=== PATIENT | female | born 1965 | race Caucasian/White ===

== ENCOUNTER 2018-05-07 19:34 | Emergency (ER) | payer OTHER, SELFPAY ==
[2018-05-07 19:34] VITALS: BMI 25.4
[2018-05-07] MEDS ORDERED: Sodium Chloride 0.9% 1,000 ML IV STA ×2 (20:21→22:54)
--- NOTE | 2018-05-07 20:26 | ED PDOC ---
HPI: General Adult Time Seen by Provider: 05/07/18 20:10 Chief Complaint (Nursing): Fever Chief Complaint (Provider): joint pain History Per: Patient History/Exam Limitations: no limitations Onset/Duration Of Symptoms: Days (months), Waxing/Waning Additional Complaint(s): 52 y/o female history of gastritis, rheumatoid arthritis, hyperlipidemia presents for evaluation of joint pain x 3 months with associated fevers. Pain localized to bilateral shoulders, hands, hips, and thighs. Daughter states patient was started on Sulfasalazine for the symptoms 2 weeks ago. Patient was seen by PMD yesterday and received pain injection which helped with the pain but was advised to come to ED for further evaluation. Denies cough, congestion, vomiting, abdominal pain, changes in bowel movements, recent travel, sick contacts. Past Medical History Reviewed: Historical Data, Nursing Documentation, Vital Signs Vital Signs: Last Vital Signs Temp 100.2 F H 05/07/18 19:50 Pulse 86 05/07/18 19:50 Resp 16 05/07/18 19:50 BP 126/60 05/07/18 19:50 Pulse Ox 100 05/07/18 19:50 - Medical History PMH: HTN, Hyperlipidemia, Rheumatoid Arthritis - Surgical History Surgical History: - Family History Family History: States: No Known Family Hx - Living Arrangements Living Arrangements: With Family - Immunization History Hx Tetanus Toxoid Vaccination: No Hx Influenza Vaccination: No Hx Pneumococcal Vaccination: No - Home Medications Home Medications: Ambulatory Orders Medication Instructions Recorded Famotidine [Pepcid] 20 mg PO BID PRN #15 tab 11/27/14 Metformin Hydrochloride [Metformin] 500 mg PO BID 11/27/14 Pantoprazole Sodium [Protonix] 20 mg PO DAILY #30 ect 11/27/14 glyBURIDE [Glyburide] 5 mg PO BID 11/27/14 Naproxen [Naprosyn Tab] 375 mg PO BID PRN #14 tab 05/07/18 Oseltamivir Cap [Tamiflu] 75 mg PO BID #9 cap 05/07/18 - Allergies Allergies/Adverse Reactions: Allergies Allergy/AdvReac Type Severity Reaction Status Date / Time No Known Allergies Allergy Verified 05/07/18 19:49 Review of Systems ROS Statement: Except As Marked, All Systems Reviewed And Found Negative Constitutional: Positive for: Fever Musculoskeletal: Positive for: Shoulder Pain, Hand Pain, Leg Pain Physical Exam - Reviewed Nursing Documentation Reviewed: Yes Vital Signs Reviewed: Yes - Physical Exam Appears: Positive for: Well, Non-toxic, Uncomfortable Head Exam: Positive for: ATRAUMATIC, NORMAL INSPECTION, NORMOCEPHALIC Skin: Positive for: Normal Color Eye Exam: Positive for: Normal appearance ENT: Positive for: Normal ENT Inspection Cardiovascular/Chest: Positive for: Regular Rate, Rhythm Respiratory: Positive for: Normal Breath Sounds Gastrointestinal/Abdominal: Positive for: Normal Exam Back: Positive for: Normal Inspection Extremity: Positive for: Normal ROM, Swelling (2-5 PIPS bilateral hands, L>R ). Negative for: Deformity Neurologic/Psych: Positive for: Alert, Oriented (x3) - Laboratory Results Result Diagrams: 05/07/18 21:30 05/08/18 01:06 - ECG ECG: Positive for: Viewed By Me (reviewed by ED attending) ECG Rhythm: Positive for: Sinus Rhythm O2 Sat by Pulse Oximetry: 100 - Radiology X-Ray: Viewed By Me X-Ray Interpretation: No Acute Disease - Other Rad xray bilateral hands X-Ray: Viewed By Nc X-Ray Interpretation: no acute findings - Progress ED Course And Treament: -cbc -cmp -sed rate -influenza -urinalysis -urine c&s -IV NS bolus -IV toradol -PO tylenol On re-eval, patient awake, smiling; states she is feeling much better Will give second IV NS bolus and repeat sodium Repeat sodium 128 from 126 Patient ambulating about ED without complaints of pain or dizziness Patient/daughter educated on findings, discharged with rx Tamiflu (dose given in ED), Naproxen Advised Tylenol PRN fever Encouraged increase fluid intake Follow up with PMD within 2-3 days Return precautions given Disposition - Clinical Impression Clinical Impression: Influenza B, Anemia, Joint pain - Patient ED Disposition Is Patient to be Admitted: No Counseled Patient/Family Regarding: Studies Performed, Diagnosis, Need For Followup, Rx Given - Disposition Disposition: Routine/Home Disposition Time: 02:04 Condition: IMPROVED Prescriptions: Naproxen [Naprosyn Tab] 375 mg PO BID PRN #14 tab PRN Reason: Pain, Moderate (4-7) Oseltamivir Cap [Tamiflu] 75 mg PO BID #9 cap Instructions: Flu, Joint Pain Forms: [employer] (Maltese)
[2018-05-07 21:33] LABS: BASO % 0.3 % (0.0-2.0); EOS # 0.2 K/uL (0.0-0.7); EOS % 3.4 % (0.0-4.0); HEMOGLOBIN 9.5 g/dL (12.0-16.0); LYMPH # 0.7 K/uL (1.0-4.3); LYMPH % 11.1 % (20.0-40.0); MEAN CELL VOLUME 80.5 fl (81.0-99.0); MEAN CORPUSCULAR HEMOGLOBIN 26.4 pg (27.0-31.0); MEAN CORPUSCULAR HGB CONC 32.8 g/dL (33.0-37.0); MEAN PLATELET VOLUME 8.3 fl (7.2-11.7); MONO # 0.1 K/uL (0.0-0.8); MONO % 2.5 % (0.0-10.0); NEUT % 82.7 % (50.0-75.0); RBC 3.59 Mil/uL (3.80-5.20); RED CELL DISTRIBUTION WIDTH 13.1 % (11.5-14.5); WHITE BLOOD COUNT 6.1 K/uL (4.8-10.8)
[2018-05-07 21:55] LABS: ALB/GLOB RATIO 0.8 (1.0-2.1); ALBUMIN 3.1 g/dL (3.5-5.0); ALT/SGPT 35 U/L (9-52); AST/SGOT 60 U/L (14-36); BLOOD UREA NITROGEN 9 mg/dl (7-17); CALCIUM 8.1 mg/dL (8.4-10.2); GFR NON-AFRICAN AMERICAN > 60; SQUAMOUS EPITHIAL 1 /hpf (0-5); URINE BACTERIA RARE (<OCC); URINE BILIRUBIN NEGATIVE (NEGATIVE); URINE BLOOD NEGATIVE (NEGATIVE); URINE CLARITY SLIGHTY-CLOUDY (Clear); URINE COLOR YELLOW (YELLOW); URINE GLUCOSE (UA) NEG (NEGATIVE); URINE LEUKOCYTE ESTERASE NEG Leu/uL (Negative); URINE PROTEIN NEGATIVE (NEGATIVE); URINE UROBILINOGEN 0.2-1.0 mg/dL (0.2-1.0)
[2018-05-07 22:44] VITALS: RESP 18
[2018-05-08 01:57] VITALS: BP 97/63; PULSE 63; TEMP 97.4
[2018-05-08 02:04] VITALS: O2SAT 100
--- NOTE | 2018-05-08 08:02 | RAD ---
PROCEDURE: Bilateral hand radiographs. HISTORY: pain, h/o RA COMPARISON: None. FINDINGS: BONES: No acute fracture or destructive bony lesion identified, bilaterally. JOINTS: The joints of the hand exhibit only limited articular cortical sclerosis throughout the interphalangeal joints bilaterally and carpometacarpal articulations compatible degenerative joint disease though mild. No marginal erosions or other suspicious soft tissue and bony findings are appreciate that would favor inflammatory arthritis including rheumatoid arthritis. No deviation of the joints is appreciated throughout as well. SOFT TISSUES: Right Hand: Normal. Left Hand: Normal. OTHER FINDINGS: None. 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 No acute fracture or dislocation appreciated. No erosive arthropathy pattern appreciated bilaterally.
--- NOTE | 2018-05-08 08:07 | RAD ---
Date of service: 05/07/2018 HISTORY: fever COMPARISON: No prior. TECHNIQUE: Chest PA and lateral FINDINGS: LUNGS: No active pulmonary disease. PLEURA: No significant pleural effusion identified. No pneumothorax apparent. CARDIOVASCULAR: No aortic atherosclerotic calcification present. Normal cardiac size. No pulmonary vascular congestion. OSSEOUS STRUCTURES: No significant abnormalities. VISUALIZED UPPER ABDOMEN: Normal. OTHER FINDINGS: None. IMPRESSION: No acute cardiopulmonary disease appreciated.
== END 2018-05-08 02:25 | disposition home or self-care (01) ==
LOC: H.ER 19:34
DX: J11.1 Influenza due to unidentified influenza virus with other respiratory manifestations (principal); D64.9 Anemia, unspecified; M25.50 Pain in unspecified joint; E78.5 Hyperlipidemia, unspecified; I10 Essential (primary) hypertension
CPT/HCPCS: 71046; 73130; 80053; 81003; 82550; 83605; 84295; 85025; 85651; 87040; 87086; 87804; 96361; 96374; 99284; J1885; J7030

== ENCOUNTER 2018-05-11 14:36 | Emergency (ER) | payer OTHER, SELFPAY ==
[2018-05-11 14:36] VITALS: BMI 25.4
[2018-05-11 15:12] VITALS: RESP 18
--- NOTE | 2018-05-11 17:56 | ED PDOC ---
Upper Extremity Pain/Injury Time Seen by Provider: 05/11/18 15:50 Chief Complaint (Nursing): Weakness/Neurological Deficit Chief Complaint (Provider): B/L arm and thigh pain History Per: Patient Additional Complaint(s): 52 y/o F with hx of Rheumatoid arthritis who presents with worsening B/L upper arm and thigh pain. Hx obtained using [employer] [facility] #9669. She was seen in ED 4 days ago for fever and body aches and found to be Influenza A+. She continues to take Tamiflu. She has a hx of joint pains and has been taking Tylenol and Naproxen. She now has b/L upper arm and thigh pain that she developed about one week ago. She took Tylenol and Naproxen at about 8am today with no improvement. Urinating normally. Denies N/V, diarrhea, arm weakness, trauma to area. She has been drinking normally. Pt was seen in ED on 05/07 and CPK at the time was 400s. Past Medical History Reviewed: Historical Data, Nursing Documentation Vital Signs: Last Vital Signs Temp 99.1 F 05/11/18 15:06 Pulse 80 05/11/18 15:06 Resp 18 05/11/18 15:06 BP 111/74 05/11/18 15:06 Pulse Ox 100 05/11/18 15:06 - Medical History PMH: Gastritis, HTN, Hyperlipidemia, Rheumatoid Arthritis - Surgical History Surgical History: - Family History Family History: States: Unknown Family Hx - Immunization History Hx Tetanus Toxoid Vaccination: No Hx Influenza Vaccination: No Hx Pneumococcal Vaccination: No - Home Medications Home Medications: Ambulatory Orders Medication Instructions Recorded Famotidine [Pepcid] 20 mg PO BID PRN #15 tab 11/27/14 Metformin Hydrochloride [Metformin] 500 mg PO BID 11/27/14 Pantoprazole Sodium [Protonix] 20 mg PO DAILY #30 ect 11/27/14 glyBURIDE [Glyburide] 5 mg PO BID 11/27/14 Naproxen [Naprosyn Tab] 375 mg PO BID PRN #14 tab 05/07/18 Oseltamivir Cap [Tamiflu] 75 mg PO BID #9 cap 05/07/18 RX: Diclofenac Sodium 50 mg PO TID PRN 7 Days tablet. 05/11/18 - Allergies Allergies/Adverse Reactions: Allergies Allergy/AdvReac Type Severity Reaction Status Date / Time No Known Allergies Allergy Verified 05/11/18 15:06 Review of Systems Musculoskeletal: Positive for: Arm Pain, Leg Pain Neurological: Negative for: Weakness Physical Exam - Reviewed Nursing Documentation Reviewed: Yes Vital Signs Reviewed: Yes - Physical Exam Appears: Positive for: Uncomfortable Skin: Positive for: Normal Color Neck: Positive for: Normal, Painless ROM Cardiovascular/Chest: Positive for: Regular Rate, Rhythm Respiratory: Positive for: Normal Breath Sounds Gastrointestinal/Abdominal: Positive for: Normal Exam Extremity: Positive for: Normal ROM, Tenderness (on palpation of B/L upper arms and anterior thighs). Negative for: Calf Tenderness, Deformity Neurologic/Psych: Positive for: Alert, Oriented - Laboratory Results Result Diagrams: 05/11/18 18:05 05/11/18 18:05 - ECG O2 Sat by Pulse Oximetry: 100 Medical Decision Making Medical Decision Making: BMP, CPK, CBC Toradol 30mg IM x 1 HgB: 8.4 from 9.7 on 05/07 and CPK 400s (unchanged from previous on 05/07) 19:30: re-assessed using [employer] [facility] [id number]. Feeling much improvement in leg and arm pain after Toradol. 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 Pt and daughter demonstrated understanding. Disposition - Clinical Impression Clinical Impression: Musculoskeletal pain of upper extremity - Patient ED Disposition Is Patient to be Admitted: No - Disposition Referrals: Mario Marcos [Medical Doctor] - Kaleb Meier MD [Staff Provider] - Disposition: Routine/Home Disposition Time: 20:02 Condition: STABLE Additional Instructions: Take Diclofenac instead of Naproxen for pain and continue to take Tylenol as well. Resume taking Sulfasalazine for Rheumatoid arthritis. Return to ER if you have worsening weakness or dizziness. 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 Prescriptions: RX: Diclofenac Sodium 50 mg PO TID PRN 7 Days tablet.dr ABRAMS Reason: Pain, Moderate (4-7) Instructions: Muscle and Bone Pain (DC) Forms: [employer] (Greek) Print Language: SINHALA
[2018-05-11 18:21] LABS: BASO % 0.4 % (0.0-2.0); EOS # 0.3 K/uL (0.0-0.7); EOS % 4.4 % (0.0-4.0); HEMOGLOBIN 8.4 g/dL (12.0-16.0); LYMPH # 0.5 K/uL (1.0-4.3); LYMPH % 7.3 % (20.0-40.0); MEAN CELL VOLUME 79.5 fl (81.0-99.0); MEAN CORPUSCULAR HEMOGLOBIN 27.1 pg (27.0-31.0); MEAN PLATELET VOLUME 7.7 fl (7.2-11.7); MONO # 0.2 K/uL (0.0-0.8); MONO % 2.7 % (0.0-10.0); NEUT # 5.7 K/uL (1.8-7.0); NEUT % 85.2 % (50.0-75.0); PLATELET COUNT 244 K/uL (130-400); RBC 3.12 Mil/uL (3.80-5.20); RED CELL DISTRIBUTION WIDTH 13.3 % (11.5-14.5); WHITE BLOOD COUNT 6.7 K/uL (4.8-10.8)
[2018-05-11 18:29] LABS: BLOOD UREA NITROGEN 7 mg/dl (7-17); GFR NON-AFRICAN AMERICAN > 60
[2018-05-11] MEDS ORDERED: methylPREDNISolone 125 MG in Sodium Chloride 0.9% 50 ML IV STA (19:46)
[2018-05-11 20:20] VITALS: BP 118/72; PULSE 78; TEMP 98.2; O2SAT 100
[2018-05-11 20:23] LABS: ANISOCYTOSIS SLIGHT; EOSINOPHIL 1 % (0-7); HYPOCHROMIC SLIGHT; LYMPHOCYTE 4 % (20-50); MONOCYTE 2 % (0-10); NEUTROPHIL 93 % (42-75); PLATELET ESTIMATE NORMAL (NORMAL); TOTAL CELLS COUNTED 100
[2018-05-11 20:26] LABS: HELMET CELLS SLIGHT
[2018-05-11 20:28] LABS: OVALOCYTES SLIGHT
== END 2018-05-11 20:19 | disposition home or self-care (01) ==
LOC: H.ER 14:36
DX: I10 Essential (primary) hypertension (principal); M06.9 Rheumatoid arthritis, unspecified; Z79.84 Long term (current) use of oral hypoglycemic drugs
CPT/HCPCS: 80048; 81025; 82550; 85025; 96372; 99284; J1885

== ENCOUNTER 2018-05-16 17:20 | Inpatient (IN) | payer OTHER, SELFPAY ==
[2018-05-16 17:20] VITALS: BMI 25.4
[2018-05-16] MEDS ORDERED: Sodium Chloride 0.9% 1,000 ML IV STA ×2 (18:06→20:32)
--- NOTE | 2018-05-16 18:06 | ED PDOC ---
HPI: General Adult Time Seen by Provider: 05/16/18 17:42 Chief Complaint (Nursing): Abdominal Pain Chief Complaint (Provider): Abdominal Pain History Per: Patient, Family History/Exam Limitations: no limitations Onset/Duration Of Symptoms: Days (x2 months) Additional Complaint(s): 52 year old female with a history of gastritis, rheumatoid arthritis, and hyperlipidemia presents for evaluation of arthritic joint pain. Patient was seen by her PMD today and sent here for further evaluation of GI bleed. Patient was evaluated in this ED on 05/07 and 05/11. On 05/07, patients hemoglobin was 9.5 and hemocrit was 28.9. Patient was diagnosed with the flu and discharged home with Tamiflu. On 05/11, her hemoglobin was 8.4 and hemocrit was 24.8. At present, patient is complaining of full body joint pain, , cough, fever, and constipation but denies vomiting, congestion or runny nose. Patients last bowel movement was x3 days ago and was black in color. No chest pain. No dyspnea. PMD: Kaleb Meier Past Medical History Reviewed: Historical Data, Nursing Documentation, Vital Signs Vital Signs: Last Vital Signs Temp 101.1 F H 05/16/18 17:32 Pulse 84 05/16/18 17:32 Resp 16 05/16/18 17:32 BP 122/57 L 05/16/18 17:32 Pulse Ox 100 05/16/18 17:32 - Medical History PMH: Gastritis, HTN (not on medicine), Hyperlipidemia, Rheumatoid Arthritis - Surgical History Surgical History: - Family History Family History: States: Unknown Family Hx - Immunization History Hx Tetanus Toxoid Vaccination: No Hx Influenza Vaccination: No Hx Pneumococcal Vaccination: No - Home Medications Home Medications: Ambulatory Orders Medication Instructions Recorded Famotidine [Pepcid] 20 mg PO BID PRN #15 tab 11/27/14 Metformin Hydrochloride [Metformin] 500 mg PO BID 11/27/14 Pantoprazole Sodium [Protonix] 20 mg PO DAILY #30 ect 11/27/14 glyBURIDE [Glyburide] 5 mg PO BID 11/27/14 Naproxen [Naprosyn Tab] 375 mg PO BID PRN #14 tab 05/07/18 Oseltamivir Cap [Tamiflu] 75 mg PO BID #9 cap 05/07/18 Diclofenac Sodium 50 mg PO TID PRN 7 Days tablet. 05/11/18 - Allergies Allergies/Adverse Reactions: Allergies Allergy/AdvReac Type Severity Reaction Status Date / Time No Known Allergies Allergy Verified 05/16/18 17:32 Review of Systems ROS Statement: Except As Marked, All Systems Reviewed And Found Negative Constitutional: Positive for: Fever ENT: Negative for: Nose Discharge, Nose Congestion Respiratory: Positive for: Cough Gastrointestinal: Positive for: Abdominal Pain, Constipation, Melena (3 days ago; none now). Negative for: Vomiting, Hematochezia Neurological: Positive for: Weakness Physical Exam - Reviewed Nursing Documentation Reviewed: Yes Vital Signs Reviewed: Yes - Physical Exam Appears: Positive for: No Acute Distress Head Exam: Positive for: ATRAUMATIC, NORMOCEPHALIC Skin: Positive for: Normal Color, Warm, Dry Eye Exam: Positive for: EOMI, Normal appearance, PERRL ENT: Positive for: Nasal Congestion Neck: Positive for: Normal, Painless ROM, Supple Cardiovascular/Chest: Positive for: Regular Rate, Rhythm. Negative for: Murmur Respiratory: Positive for: Normal Breath Sounds. Negative for: Respiratory Distress Gastrointestinal/Abdominal: Positive for: Soft. Negative for: Tenderness Back: Positive for: Normal Inspection. Negative for: L CVA Tenderness, R CVA Tenderness Extremity: Positive for: Normal ROM, Tenderness (Diffusely tender joints). 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 Negative for: Motor/Sensory Deficits - Laboratory Results Result Diagrams: 05/16/18 18:25 05/16/18 18:25 Lab Results: 93 chloride; 127 Na. - ECG ECG: Positive for: Interpreted By Me, Viewed By Me ECG Rhythm: Positive for: Normal QRS, Normal ST Segment, Sinus Rhythm O2 Sat by Pulse Oximetry: 100 (RA) Pulse Ox Interpretation: Normal - Radiology X-Ray: Read By Radiologist X-Ray Interpretation: No Acute Disease - Progress ED Course And Treament: 2038: Stable. Spoke with hospitalist. Will admit obs tele. AAOx3. Spoke with daughter. States pt. took and finished tamiflu as prescribed. Medical Decision Making Medical Decision Making: Time: 1804 Plan: --ABO/RH type --Type and screen --VBG --EKG --CMP --Troponin --CBC --PTT --PT/INR --CXR --NS --Tylenol 975 mg PO --Ultram 50 mg PO --Blood culture Time: 1858 --Spoke with Dr. Meier, who recently saw patient, who wants patient admitted as her hemoglobin has been dropping. He is aware of treatment plan and agrees with plan of care. Scribe Attestation: Documented by Joyce Ivy, acting as a scribe for David Hopkins MD. Provider Scribe Attestation: All medical record entries made by the Scribe were at my direction and personally dictated by me. I have reviewed the chart and agree that the record accurately reflects my personal performance of the history, physical exam, medical decision making, and the department course for this patient. I have also personally directed, reviewed, and agree with the discharge instructions and disposition. Disposition - Clinical Impression Clinical Impression: Weakness, Lower GI bleed, Anemia - Patient ED Disposition Is Patient to be Admitted: No Counseled Patient/Family Regarding: Studies Performed, Diagnosis - Disposition Disposition Time: 20:40 Condition: FAIR - Pt Status Changed To: Hospital Disposition Of: Observation - POA Present On Arrival: None
[2018-05-16 18:19] LABS: VENOUS BLOOD GAS BASE EXCESS 2.2 mmol/L (0.0-2.0); VENOUS BLOOD GAS PCO2 46 mmHg (40-60); VENOUS BLOOD GAS PO2 17 mm/Hg (30-55); VENOUS BLOOD PH 7.39 (7.32-7.43)
--- NOTE | 2018-05-16 19:09 | RAD ---
Date of service: 05/16/2018 HISTORY: cough COMPARISON: Chest radiographs 05/07/2018. FINDINGS: LUNGS: No active pulmonary disease. PLEURA: No significant pleural effusion identified, no pneumothorax apparent. CARDIOVASCULAR: No aortic atherosclerotic calcification present. Normal cardiac size. No pulmonary vascular congestion. OSSEOUS STRUCTURES: No significant abnormalities. VISUALIZED UPPER ABDOMEN: Normal. OTHER FINDINGS: None. IMPRESSION: No interval acute cardiopulmonary disease appreciated.
[2018-05-16 19:33] LABS: BASO % 0.2 % (0.0-2.0); EOS # 0.1 K/uL (0.0-0.7); EOS % 1.6 % (0.0-4.0); HEMOGLOBIN 9.1 g/dL (12.0-16.0); LYMPH # 0.6 K/uL (1.0-4.3); LYMPH % 7.9 % (20.0-40.0); MEAN CORPUSCULAR HEMOGLOBIN 26.2 pg (27.0-31.0); MEAN CORPUSCULAR HGB CONC 32.3 g/dL (33.0-37.0); MEAN PLATELET VOLUME 7.1 fl (7.2-11.7); MONO # 0.2 K/uL (0.0-0.8); MONO % 2.4 % (0.0-10.0); NEUT # 6.8 K/uL (1.8-7.0); NEUT % 87.9 % (50.0-75.0); PLATELET COUNT 283 K/uL (130-400); RBC 3.46 Mil/uL (3.80-5.20); RED CELL DISTRIBUTION WIDTH 13.6 % (11.5-14.5); WHITE BLOOD COUNT 7.8 K/uL (4.8-10.8)
[2018-05-16 19:44] LABS: PROTHROMBIN TIME 11.5 Seconds (9.8-13.1)
[2018-05-16 19:46] LABS: PARTIAL THROMBOPLASTIN TIME 24.2 Seconds (25.6-37.1)
[2018-05-16 19:52] LABS: ALB/GLOB RATIO 0.7 (1.0-2.1); ALBUMIN 2.9 g/dL (3.5-5.0); ALT/SGPT 63 U/L (9-52); AST/SGOT 120 U/L (14-36); BLOOD UREA NITROGEN 9 mg/dl (7-17); CALCIUM 8.5 mg/dL (8.4-10.2); GFR NON-AFRICAN AMERICAN > 60
[2018-05-16 21:09] LABS: ANISOCYTOSIS MODERATE; BANDS 2 % (0-2); EOSINOPHIL 2 % (0-7); HYPOCHROMIC SLIGHT; LYMPHOCYTE 10 % (20-50); MICROCYTOSIS SLIGHT; MONOCYTE 4 % (0-10); NEUTROPHIL 82 % (42-75); OVALOCYTES SLIGHT; PLATELET ESTIMATE NORMAL (NORMAL); POIKILOCYTOSIS MODERATE; TOTAL CELLS COUNTED 100
--- NOTE | 2018-05-16 21:47 | CP.PCM.HP ---
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 Per patient's daughter, patient has intermitent fever for 1 month associated with worsening B/L thigh pain, shoulder pain and epigastric pain. Last recorded temperature at home was 101. 0 F about 3 weeks ago and patient has been taking extra strenght tylenol 500 mg q6hrs for fever. Patient has been taking Di clofenac and Sulfasalazine for her arthritis pain. Patient was positive for influenza on 05/07/18 and completed a course of tamiflu. Patient reports she had last BM 3 days ago and it was blood stool. Denies any nausea, vomiting, bright red blood per rectum. Denies any hx EGD/Colonoscopy in the past. Patient's H&H on 05/11/18 was 8.4/24.8 and today it us 9.1/28.0. ROS: all 12 systems reviewed and negative except as mentioned in HPI PMD: Dr. Natalio El PMHx: gastritis, RA, HLD Surgery hx: x 5 Social hx: denies smoking cigarettes, drinking alcohol or using drugs Family: non-contributory Allergies: NKDA Medications: Sulfasalazine 500 mg BID, acetaminophen 500 mg q6 hr, Diclofenac 500 mg TID Present on Admission - Present on Admission Any Indicators Present on Admission: No Review of Systems - Review of Systems Review of Systems: All 12 systems reviewed and negative except as mentioned in HPI Past Patient History - Infectious Disease Hx of Infectious Diseases: None - Past Social History Smoking Status: Never Smoked - CARDIAC Hx Hypertension: Yes (not on medicine) - ENDOCRINE/METABOLIC Hx Diabetes Mellitus Type 2: Yes (not on medicine) - MUSCULOSKELETAL/RHEUMATOLOGICAL Hx Rheumatoid Arthritis: Yes - GASTROINTESTINAL Hx Gastritis: Yes - PSYCHIATRIC Hx Substance Use: No - SURGICAL HISTORY Hx Surgeries: Yes Hx Section: Yes (x5) - ANESTHESIA Hx Anesthesia: Yes Hx Anesthesia Reactions: No Hx Malignant Hyperthermia: No Meds Allergies/Adverse Reactions: Allergies Allergy/AdvReac Type Severity Reaction Status Date / Time No Known Allergies Allergy Verified 05/16/18 17:32 Physical Exam - Constitutional Appears: No Acute Distress - Head Exam Head Exam: NORMAL INSPECTION - Eye Exam Eye Exam: Normal appearance - ENT Exam ENT Exam: Mucous Membranes Moist - Respiratory Exam Respiratory Exam: Clear to Auscultation Bilateral, NORMAL BREATHING PATTERN. absent: Rhonchi, Wheezes - Cardiovascular Exam Cardiovascular Exam: REGULAR RHYTHM, +S1, +S2 - GI/Abdominal Exam GI & Abdominal Exam: Normal Bowel Sounds, Soft Additional comments: Mild epigastric tenderness, no rebound or guarding - Extremities Exam Additional comments: Tenderness at the B/l thigh, no knee swelling or tenderness. B/L ankle and foot mild swelling. No calf tenderness. - Neurological Exam Neurological exam: Alert, Oriented x3 - Psychiatric Exam Psychiatric exam: Anxious - Skin Skin Exam: Normal Color Results - Vital Signs Recent Vital Signs: Last Vital Signs Temp 99.2 F 05/16/18 20:21 Pulse 82 05/16/18 20:21 Resp 18 05/16/18 20:21 BP 95/54 L 05/16/18 20:21 Pulse Ox 100 05/16/18 20:42 - Labs Result Diagrams: 05/16/18 18:25 05/16/18 18:25 Labs: Laboratory Results - last 24 hr 05/16/18 05/16/18 05/16/18 18:13 18:25 18:25 WBC 7.8 RBC 3.46 L Hgb 9.1 L Hct 28.0 L MCV 81.0 MCH 26.2 L MCHC 32.3 L RDW 13.6 Plt Count 283 MPV 7.1 L Neut % (Auto) 87.9 H Lymph % (Auto) 7.9 L [place] % (Auto) 2.4 Eos % (Auto) 1.6 Baso % (Auto) 0.2 Neut # (Auto) 6.8 Lymph # (Auto) 0.6 L [place] # (Auto) 0.2 Eos # (Auto) 0.1 Baso # (Auto) 0.0 Neutrophils % (Manual) 82 H Band Neutrophils % 2 Lymphocytes % (Manual) 10 L Monocytes % (Manual) 4 Eosinophils % (Manual) 2 Platelet Estimate Normal Hypochromasia (manual) Slight Poikilocytosis (manual Moderate Anisocytosis (manual) Moderate Microcytosis (manual) Slight Ovalocytes Slight PT INR APTT pO2 17 L VBG pH 7.39 VBG pCO2 46 VBG HCO3 24.6 VBG Total CO2 29.2 H VBG O2 Sat (Calc) 25.3 L VBG Base Excess 2.2 H VBG Potassium 4.9 Sodium 129.0 L 127 L Chloride 99.0 93 L Glucose 81 Lactate 1.9 FiO2 21.0 Potassium 4.7 Carbon Dioxide 25 Anion Gap 14 BUN 9 Creatinine 0.5 L Est GFR ( Amer) > 60 Est GFR (Non-Af Amer) > 60 Random Glucose 78 Calcium 8.5 Total Bilirubin 0.3 AST 120 H D ALT 63 H D Alkaline Phosphatase 74 Troponin I < 0.0120 Total Protein 7.1 Albumin 2.9 L Globulin 4.2 H Albumin/Globulin Ratio 0.7 L Venous Blood Potassium 4.9 Blood Type Antibody Screen BBK History Checked 05/16/18 05/16/18 18:25 18:25 WBC RBC Hgb Hct MCV MCH MCHC RDW Plt Count MPV Neut % (Auto) Lymph % (Auto) [place] % (Auto) Eos % (Auto) Baso % (Auto) Neut # (Auto) Lymph # (Auto) [place] # (Auto) Eos # (Auto) Baso # (Auto) Neutrophils % (Manual) Band Neutrophils % Lymphocytes % (Manual) Monocytes % (Manual) Eosinophils % (Manual) Platelet Estimate Hypochromasia (manual) Poikilocytosis (manual Anisocytosis (manual) Microcytosis (manual) Ovalocytes PT 11.5 INR 1.0 APTT 24.2 L pO2 VBG pH VBG pCO2 VBG HCO3 VBG Total CO2 VBG O2 Sat (Calc) VBG Base Excess VBG Potassium Sodium Chloride Glucose Lactate FiO2 Potassium Carbon Dioxide Anion Gap BUN Creatinine Est GFR ( Amer) Est GFR (Non-Af Amer) Random Glucose Calcium Total Bilirubin AST ALT Alkaline Phosphatase Troponin I Total Protein Albumin Globulin Albumin/Globulin Ratio Venous Blood Potassium Blood Type B POSITIVE Antibody Screen Negative BBK History Checked No verified bt Assessment & Plan - Assessment and Plan (Free Text) Assessment: 52 year old Female with PMHx of recently diagnosed rheumatoid arthritis, gastritis and hyperlipidemia 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 Plan: Intermittent fever and polyarthralgia -Likely secondary to flare up of RA -T 101.1 F in ED, otherwise stable BP -wbc 7.8 with left shift; CPK 867 -start Ceftriaxone 1 gm q24 hrs -Received 2 L bolus of NS -Start NS @125 cc/hr -f/u duplex US of LE -f/u blood cx and AM labs Anemia -H&H 9.1/28.0, no transfusion indicated at this time -f/u cbc, ferritin, iron &TIBC, vitamin b12 -Consider GI referral in the AM, otherwise outpatient f/u -Avoids NSAIDS or combine with PPI Diet regular diet DVT prophylaxis SCD's for now Patient seen, examined and plan discussed with Dr. Raad Farr, pgy-2 <Cody Shankar M - Last Filed: 05/17/18 03:01> Results - Vital Signs Recent Vital Signs: Last Vital Signs Temp 98.4 F 05/17/18 00:21 Pulse 74 05/17/18 00:21 Resp 17 05/17/18 00:21 BP 95/64 L 05/17/18 00:21 Pulse Ox 94 L 05/17/18 00:21 - Labs Result Diagrams: 05/16/18 18:25 05/16/18 18:25 Labs: Laboratory Results - last 24 hr 05/16/18 05/16/18 05/16/18 18:13 18:25 18:25 WBC 7.8 RBC 3.46 L Hgb 9.1 L Hct 28.0 L MCV 81.0 MCH 26.2 L MCHC 32.3 L RDW 13.6 Plt Count 283 MPV 7.1 L Neut % (Auto) 87.9 H Lymph % (Auto) 7.9 L [place] % (Auto) 2.4 Eos % (Auto) 1.6 Baso % (Auto) 0.2 Neut # (Auto) 6.8 Lymph # (Auto) 0.6 L [place] # (Auto) 0.2 Eos # (Auto) 0.1 Baso # (Auto) 0.0 Neutrophils % (Manual) 82 H Band Neutrophils % 2 Lymphocytes % (Manual) 10 L Monocytes % (Manual) 4 Eosinophils % (Manual) 2 Platelet Estimate Normal Hypochromasia (manual) Slight Poikilocytosis (manual Moderate Anisocytosis (manual) Moderate Microcytosis (manual) Slight Ovalocytes Slight PT INR APTT pO2 17 L VBG pH 7.39 VBG pCO2 46 VBG HCO3 24.6 VBG Total CO2 29.2 H VBG O2 Sat (Calc) 25.3 L VBG Base Excess 2.2 H VBG Potassium 4.9 Sodium 129.0 L 127 L Chloride 99.0 93 L Glucose 81 Lactate 1.9 FiO2 21.0 Potassium 4.7 Carbon Dioxide 25 Anion Gap 14 BUN 9 Creatinine 0.5 L Est GFR ( Amer) > 60 Est GFR (Non-Af Amer) > 60 Random Glucose 78 Calcium 8.5 Total Bilirubin 0.3 AST 120 H D ALT 63 H D Alkaline Phosphatase 74 Total Creatine Kinase 867 H Troponin I < 0.0120 Total Protein 7.1 Albumin 2.9 L Globulin 4.2 H Albumin/Globulin Ratio 0.7 L Venous Blood Potassium 4.9 Blood Type Antibody Screen BBK History Checked 05/16/18 05/16/18 18:25 18:25 WBC RBC Hgb Hct MCV MCH MCHC RDW Plt Count MPV Neut % (Auto) Lymph % (Auto) [place] % (Auto) Eos % (Auto) Baso % (Auto) Neut # (Auto) Lymph # (Auto) [place] # (Auto) Eos # (Auto) Baso # (Auto) Neutrophils % (Manual) Band Neutrophils % Lymphocytes % (Manual) Monocytes % (Manual) Eosinophils % (Manual) Platelet Estimate Hypochromasia (manual) Poikilocytosis (manual Anisocytosis (manual) Microcytosis (manual) Ovalocytes PT 11.5 INR 1.0 APTT 24.2 L pO2 VBG pH VBG pCO2 VBG HCO3 VBG Total CO2 VBG O2 Sat (Calc) VBG Base Excess VBG Potassium Sodium Chloride Glucose Lactate FiO2 Potassium Carbon Dioxide Anion Gap BUN Creatinine Est GFR ( Amer) Est GFR (Non-Af Amer) Random Glucose Calcium Total Bilirubin AST ALT Alkaline Phosphatase Total Creatine Kinase Troponin I Total Protein Albumin Globulin Albumin/Globulin Ratio Venous Blood Potassium Blood Type B POSITIVE Antibody Screen Negative BBK History Checked No verified bt Assessment & Plan - Assessment and Plan (Free Text) Plan: History as documented by resident was reviewed with patient and resident. I personally performed the shen elements of physical exam and agree with the above findings. Diagnostics reviewed. X-ray and EKG as above interpreted by me. Medical decision making and plan of care performed by me. 52 yo [place] female with HLD and recently Dx RA sent from plumber maintenance office to be worked up for GI bleed. H&H stable. Fever 101. Agree with Rocephin and IVF and GI consult. On exam has b/l LE swelling and pain. Will rule out DVT.
[2018-05-17] MEDS: Sodium Chloride 0.9% 1,000 ML IV SCH ×3 (00:50→17:10)
[2018-05-17 05:09] LABS: BASO % 0.1 % (0.0-2.0); EOS # 0.1 K/uL (0.0-0.7); EOS % 2.2 % (0.0-4.0); HEMOGLOBIN 8.2 g/dL (12.0-16.0); LYMPH # 0.4 K/uL (1.0-4.3); LYMPH % 6.6 % (20.0-40.0); MEAN CELL VOLUME 80.5 fl (81.0-99.0); MEAN CORPUSCULAR HEMOGLOBIN 26.3 pg (27.0-31.0); MEAN CORPUSCULAR HGB CONC 32.6 g/dL (33.0-37.0); MONO # 0.2 K/uL (0.0-0.8); MONO % 2.5 % (0.0-10.0); NEUT # 5.8 K/uL (1.8-7.0); NEUT % 88.6 % (50.0-75.0); NRBC % 0.1 % (0.0-0.0); RBC 3.11 Mil/uL (3.80-5.20); RED CELL DISTRIBUTION WIDTH 13.6 % (11.5-14.5); WHITE BLOOD COUNT 6.5 K/uL (4.8-10.8)
[2018-05-17 06:01] LABS: ALB/GLOB RATIO 0.6 (1.0-2.1); ALBUMIN 2.4 g/dL (3.5-5.0); ALT/SGPT 56 U/L (9-52); AST/SGOT 100 U/L (14-36); BLOOD UREA NITROGEN 9 mg/dl (7-17); CALCIUM 7.4 mg/dL (8.4-10.2); GFR NON-AFRICAN AMERICAN > 60
[2018-05-17 08:19] LABS: IRON 13 ug/dL (37-170)
[2018-05-17 08:28] LABS: % IRON SATURATION 7 % (20-55); TOTAL IRON BINDING CAPACITY 170 ug/dL (250-450)
[2018-05-17] MEDS ORDERED: Pantoprazole 40 mg EC Tab PO SCH (09:00)
--- NOTE | 2018-05-17 09:04 | US ---
Date of service: 05/17/2018 PROCEDURE: Bilateral lower extremity venous duplex Doppler. HISTORY: B/L lower extremity pain and swelling COMPARISON: None available. TECHNIQUE: Bilateral common femoral, superficial femoral, popliteal and posterior tibial veins were evaluated. Flow was assessed with color Doppler, compressibility, assessment of phasic flow and augmentation response. FINDINGS: COMMON FEMORAL VEIN: Right CFV: Unremarkable. Left CFV: Unremarkable. SUPERFICIAL FEMORAL VEIN: Right SFV: Unremarkable. Left SFV: Unremarkable. POPLITEAL VEIN: Right Popliteal: Unremarkable. Left Popliteal: Unremarkable. POSTERIOR TIBIAL VEIN: Right PTV: Unremarkable. Left PTV: Unremarkable. OTHER FINDINGS: None. IMPRESSION: No evidence of deep venous thrombosis.
--- NOTE | 2018-05-17 09:30 | CP.PCM.PN ---
<Lawson Hernandez - Last Filed: 05/17/18 11:37> Subjective - Date & Time of Evaluation Date of Evaluation: 05/17/18 Time of Evaluation: 09:29 - Subjective Subjective: pt seen and evaluated at bedside this morning. No acute events overnight. Slept well, pleasant mood with daughter at bedside. Pt has been afebrile since 17:30 on 05/16 and reports feeling better. Denies any pain at this time. Denies any melena or hematochezia. No abdominal pain. Hemodynamically stable. Objective - Vital Signs/Intake and Output Vital Signs (last 24 hours): Temp Pulse Resp BP Pulse Ox 98.8 F 82 19 111/68 92 L 05/17/18 07:57 05/17/18 07:57 05/17/18 07:57 05/17/18 07:57 05/17/18 07:57 - Medications Medications: Current Medications Acetaminophen (Tylenol 325mg Tab) 650 mg PO Q6H PRN PRN Reason: Pain, Mild (1-3) Docusate Sodium (Colace) 100 mg PO Q12 CHRISTINA Last Admin: 05/17/18 00:59 Dose: 100 mg Ceftriaxone Sodium 1 gm/ (Sodium Chloride) 100 mls @ 100 mls/hr IVPB DAILY CHRISTINA; Protocol Sodium Chloride (Sodium Chloride 0.9%) 1,000 mls @ 125 mls/hr IV .Q8H CHRISTINA Stop: 05/18/18 00:09 Last Admin: 05/17/18 00:50 Dose: 125 mls/hr Morphine Sulfate (Morphine) 2 mg IVP Q6H PRN PRN Reason: Pain, severe (8-10) Last Admin: 05/17/18 00:49 Dose: 2 mg Pantoprazole Sodium (Protonix Inj) 40 mg IVP Q12 CHRISTINA Sulfasalazine (Azulfidine) 500 mg PO Q12 CHRISTINA Tramadol HCl (Ultram) 50 mg PO Q6H PRN PRN Reason: Pain, moderate (4-7) - Labs Labs: 05/17/18 04:15 05/17/18 04:15 PT 11.5 Seconds (9.8-13.1) 05/16/18 18:25 INR 1.0 05/16/18 18:25 APTT 24.2 Seconds (25.6-37.1) L 05/16/18 18:25 - Constitutional Appears: Non-toxic, No Acute Distress - Head Exam Head Exam: ATRAUMATIC, NORMAL INSPECTION - Eye Exam Eye Exam: EOMI, PERRL - ENT Exam ENT Exam: Mucous Membranes Moist - Neck Exam Neck Exam: Full ROM. absent: Lymphadenopathy - Respiratory Exam Respiratory Exam: Clear to Ausculation Bilateral, NORMAL BREATHING PATTERN. absent: Decreased Breath Sounds, Rales, Rhonchi, Wheezes - Cardiovascular Exam Cardiovascular Exam: REGULAR RHYTHM, RRR, +S1, +S2. absent: Tachycardia, JVD, Rubs, Murmur - GI/Abdominal Exam GI & Abdominal Exam: Soft, Tenderness, Normal Bowel Sounds. absent: Distended, Firm, Guarding, Rigid - Extremities Exam Extremities Exam: Normal Inspection. absent: Calf Tenderness, Pedal Edema - Neurological Exam Neurological Exam: Alert, Awake, CN II-XII Intact, Oriented x3 - Skin Skin Exam: Dry. 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 Plan: Intermittent fever and polyarthralgia -Likely secondary to flare up of RA -T 101.1 F in ED, otherwise stable BP -afebrile is 17:30 on 05/16 -wbc 7.8 with left shift; CPK 867 -start Ceftriaxone 1 gm q24 hrs -Received 2 L bolus of NS in ED -NS @125 cc/hr -duplex US of LE: no evidence of DVT -f/u blood bx -H/H this mornin.2/25.0 -repeat H/H at noon today Anemia -H&H 9.1/28.0, no transfusion indicated at this time -repeat H/H: 8.2/25.0, likely hemodilutional -ferritin: 300, iron: 13, TIBC 170, % saturation 7, B12: 859 -Consider GI referral in the AM, otherwise outpatient f/u -Avoids NSAIDS or combine with PPI -follow up Occult blood Transaminasemia -likely 2/2 to chronic APAP use -d/c APAP -liver enzymes improving -follow up labs Diet regular diet DVT prophylaxis SCD's for now <Kendra Ravi - Last Filed: 05/17/18 17:00> Objective - Vital Signs/Intake and Output Vital Signs (last 24 hours): Temp Pulse Resp BP Pulse Ox 98.2 F 83 18 88/49 L 100 05/17/18 16:11 05/17/18 16:11 05/17/18 16:11 05/17/18 16:11 05/17/18 16:11 - Medications Medications: Current Medications Acetaminophen (Tylenol 325mg Tab) 650 mg PO Q6H PRN PRN Reason: Pain, Mild (1-3) Last Admin: 05/17/18 12:07 Dose: 650 mg Docusate Sodium (Colace) 100 mg PO Q12 CHRISTINA Last Admin: 05/17/18 10:00 Dose: 100 mg Ceftriaxone Sodium 1 gm/ (Sodium Chloride) 100 mls @ 100 mls/hr IVPB DAILY CHRISTINA; Protocol Last Admin: 05/17/18 09:59 Dose: 100 mls/hr Sodium Chloride (Sodium Chloride 0.9%) 1,000 mls @ 125 mls/hr IV .Q8H CHRISTINA Stop: 05/18/18 00:09 Last Admin: 05/17/18 10:01 Dose: 125 mls/hr Azithromycin 500 mg/ Sodium (Chloride) 250 mls @ 250 mls/hr IVPB DAILY CHRISTINA; Protocol Morphine Sulfate (Morphine) 2 mg IVP Q6H PRN PRN Reason: Pain, severe (8-10) Last Admin: 05/17/18 00:49 Dose: 2 mg Pantoprazole Sodium (Protonix Inj) 40 mg IVP Q12 CHRISTINA Last Admin: 05/17/18 10:00 Dose: 40 mg Sulfasalazine (Azulfidine) 500 mg PO Q12 CHRISTINA Last Admin: 05/17/18 10:55 Dose: 500 mg Tramadol HCl (Ultram) 50 mg PO Q6H PRN PRN Reason: Pain, moderate (4-7) Last Admin: 05/17/18 10:10 Dose: 50 mg - Labs Labs: 05/17/18 12:08 05/17/18 04:15 PT 11.5 Seconds (9.8-13.1) 05/16/18 18:25 INR 1.0 05/16/18 18:25 APTT 24.2 Seconds (25.6-37.1) L 05/16/18 18:25 Attending/Attestation - Attestation I have personally seen and examined this patient.: Yes I have fully participated in the care of the patient.: Yes I have reviewed all pertinent clinical information, including history, physical exam and plan: Yes Notes (Text): Fever poss sec to Pneumonia - rales and wheezing noted on exam - CT of chest to further eval for PNA as CXR neg - Flu swab - cont IV Ceftraixone , add Azithro to cover atypicals ( hyponatremia, abn LFT) - will admit pt as pt still febrile - Sputum c/s , Legionella. Mycoplasma Anemia, chronic likely due to chronic dis -will give Venofer Hyponatremia IVF hydration Transaminitis - ? sec to infection vs meds - trending down Rheumatoid Arthritis - cont home meds
[2018-05-17 12:24] LABS: HEMOGLOBIN 8.8 g/dL (12.0-16.0)
[2018-05-17 13:55] LABS: SQUAMOUS EPITHIAL 1 /hpf (0-5); URINE BACTERIA RARE (<OCC); URINE BILIRUBIN NEGATIVE (NEGATIVE); URINE BLOOD NEGATIVE (NEGATIVE); URINE CLARITY CLEAR (Clear); URINE COLOR YELLOW (YELLOW); URINE GLUCOSE (UA) NEG (NEGATIVE); URINE LEUKOCYTE ESTERASE NEG Leu/uL (Negative); URINE PROTEIN NEGATIVE (NEGATIVE); URINE UROBILINOGEN 0.2-1.0 mg/dL (0.2-1.0)
--- NOTE | 2018-05-17 15:08 | CT ---
Date of service: 05/17/2018 PROCEDURE: CT Chest without contrast HISTORY: pneumonia, wheezing, rales on exam COMPARISON: None available. TECHNIQUE: Contiguous axial images were obtained through the chest without intravenous contrast enhancement. Sagittal and coronal reconstructions were performed. Radiation dose: Total exam DLP = 184.85 mGy-cm. This CT exam was performed using one or more of the following dose reduction techniques: Automated exposure control, adjustment of the mA and/or kV according to patient size, and/or use of iterative reconstruction technique. FINDINGS: LUNGS: Pulmonary vascular congestion. Bibasilar atelectasis. Left lower lobe airspace opacities, possibly consolidation versus confluent edema. Right lower lobe subsegmental atelectasis. 6 mm right upper lobe nodule (series 2, image 32). MEDIASTINUM: Unremarkable thoracic aorta. No aneurysm. Normal sized heart. Main pulmonary artery unremarkable. No vascular congestion. No lymphadenopathy. No aortic atherosclerotic calcification. PLEURA: Small bilateral pleural effusions. No pneumothorax. BONES: No fracture. No destructive lesion. UPPER ABDOMEN: Punctate hepatic calcified granuloma. OTHER FINDINGS: None. IMPRESSION: Pulmonary vascular congestion with small bilateral pleural effusions. Left lower lobe patchy airspace opacities, possibly infiltrates versus confluent edema. 6 mm right upper lobe nodule. Twelve month CT follow-up can be obtained to assess for stability.
[2018-05-17] MEDS ORDERED: Sodium Chloride 3% for Inhalation 4 ML VIAL.NEB IH PRN (16:54)
[2018-05-17] MEDS: Azithromycin 500 MG in Sodium Chloride 0.9% 250 ML IVPB SCH (17:09)
--- NOTE | 2018-05-17 23:44 | CP.PCM.CON ---
History of Present Illness - History of Present Illness History of Present Illness: 52 yo female with recently diagnosed RA referred for evaluation of anemia and GI bleed. Has been using diclofenac and sulfasalazine for RA. No pior upper or lower endoscopy. Review of Systems - Constitutional Constitutional: Chills - EENT Eyes: absent: Blurred Vision Ears: absent: Ear Discharge Nose/Mouth/Throat: absent: Nasal Congestion - Cardiovascular Cardiovascular: absent: Chest Pain - Respiratory Respiratory: absent: Dyspnea - Gastrointestinal Gastrointestinal: absent: Abdominal Pain - Genitourinary Genitourinary: absent: Change in Urinary Stream Past Patient History - Infectious Disease Hx of Infectious Diseases: None - Past Medical History & Family History Past Medical History?: Yes - Past Social History Smoking Status: Never Smoked - CARDIAC Hx Hypertension: Yes (not on medicine) - PULMONARY Hx Respiratory Disorders: No - NEUROLOGICAL Hx Neurological Disorder: No - HEENT Hx HEENT Problems: No - RENAL Hx Chronic Kidney Disease: No - ENDOCRINE/METABOLIC Hx Diabetes Mellitus Type 2: Yes (not on medicine) - HEMATOLOGICAL/ONCOLOGICAL Hx Blood Disorders: No - INTEGUMENTARY Hx Dermatological Problems: No - MUSCULOSKELETAL/RHEUMATOLOGICAL Hx Rheumatoid Arthritis: Yes - GASTROINTESTINAL Hx Gastritis: Yes - PSYCHIATRIC Hx Substance Use: No - SURGICAL HISTORY Hx Surgeries: Yes Hx Section: Yes (x5) - ANESTHESIA Hx Anesthesia: Yes Hx Anesthesia Reactions: No Hx Malignant Hyperthermia: No Meds Allergies/Adverse Reactions: Allergies Allergy/AdvReac Type Severity Reaction Status Date / Time No Known Allergies Allergy Verified 05/16/18 17:32 - Medications Medications: Current Medications Acetaminophen (Tylenol 325mg Tab) 650 mg PO Q6H PRN PRN Reason: Pain, Mild (1-3) Last Admin: 05/17/18 12:07 Dose: 650 mg Docusate Sodium (Colace) 100 mg PO Q12 [facility] Last Admin: 05/17/18 21:08 Dose: 100 mg Ceftriaxone Sodium 1 gm/ (Sodium Chloride) 100 mls @ 100 mls/hr IVPB DAILY [facility]; Protocol Last Admin: 05/17/18 09:59 Dose: 100 mls/hr Sodium Chloride (Sodium Chloride 0.9%) 1,000 mls @ 125 mls/hr IV .Q8H [facility] Stop: 05/18/18 00:09 Last Admin: 05/17/18 17:10 Dose: 125 mls/hr Azithromycin 500 mg/ Sodium (Chloride) 250 mls @ 250 mls/hr IVPB DAILY [facility]; Protocol Last Admin: 05/17/18 17:09 Dose: 250 mls/hr Morphine Sulfate (Morphine) 2 mg IVP Q6H PRN PRN Reason: Pain, severe (8-10) Last Admin: 05/17/18 00:49 Dose: 2 mg Pantoprazole Sodium (Protonix Inj) 40 mg IVP Q12 [facility] Last Admin: 05/17/18 21:09 Dose: 40 mg Sulfasalazine (Azulfidine) 500 mg PO Q12 [facility] Last Admin: 05/17/18 21:08 Dose: 500 mg Tramadol HCl (Ultram) 50 mg PO Q6H PRN PRN Reason: Pain, moderate (4-7) Last Admin: 05/17/18 10:10 Dose: 50 mg Physical Exam - Constitutional Appears: No Acute Distress - Head Exam Head Exam: ATRAUMATIC - Eye Exam Eye Exam: Normal appearance - ENT Exam ENT Exam: Normal Exam - Neck Exam Neck exam: Positive for: Normal Inspection - Respiratory Exam Respiratory Exam: Clear to Auscultation Bilateral - Cardiovascular Exam Cardiovascular Exam: REGULAR RHYTHM - GI/Abdominal Exam GI & Abdominal Exam: Normal Bowel Sounds, Soft Results - Vital Signs Recent Vital Signs: Last Vital Signs Temp 99.0 F 05/17/18 20:43 Pulse 92 H 05/17/18 20:00 Resp 18 05/17/18 20:00 BP 110/66 05/17/18 20:00 Pulse Ox 100 05/17/18 20:00 - Labs Result Diagrams: 05/17/18 12:08 05/17/18 04:15 Labs: Laboratory Results - last 24 hr 05/16/18 05/17/18 05/17/18 18:25 04:15 04:15 WBC 6.5 RBC 3.11 L Hgb 8.2 L Hct 25.0 L MCV 80.5 L MCH 26.3 L MCHC 32.6 L RDW 13.6 Plt Count 235 MPV 7.0 L Neut % (Auto) 88.6 H Lymph % (Auto) 6.6 L [place] % (Auto) 2.5 Eos % (Auto) 2.2 Baso % (Auto) 0.1 Neut # (Auto) 5.8 Lymph # (Auto) 0.4 L [place] # (Auto) 0.2 Eos # (Auto) 0.1 Baso # (Auto) 0.0 Sodium 127 L Potassium 4.7 Chloride 93 L Carbon Dioxide 25 Anion Gap 14 BUN 9 Creatinine 0.5 L Est GFR ( Amer) > 60 Est GFR (Non-Af Amer) > 60 Random Glucose 78 Calcium 8.5 Phosphorus Magnesium Iron TIBC % Saturation Ferritin Total Bilirubin 0.3 AST 120 H D ALT 63 H D Alkaline Phosphatase 74 Total Creatine Kinase 867 H Troponin I < 0.0120 Total Protein 7.1 Albumin 2.9 L Globulin 4.2 H Albumin/Globulin Ratio 0.7 L Vitamin B12 Urine Color Urine Clarity Urine pH Ur Specific [place] Urine Protein Urine Glucose (UA) Urine Ketones Urine Blood Urine Nitrate Urine Bilirubin Urine Urobilinogen Ur Leukocyte Esterase Urine RBC (Auto) Urine Microscopic WBC Ur Squamous Epith Cells Urine Bacteria Influenza Typ A,B (EIA) Blood Type Confirm B POSITIVE 05/17/18 05/17/18 05/17/18 04:15 07:30 12:08 WBC RBC Hgb 8.8 L Hct 26.7 L MCV MCH MCHC RDW Plt Count MPV Neut % (Auto) Lymph % (Auto) [place] % (Auto) Eos % (Auto) Baso % (Auto) Neut # (Auto) Lymph # (Auto) [place] # (Auto) Eos # (Auto) Baso # (Auto) Sodium 128 L Potassium 4.6 Chloride 98 Carbon Dioxide 21 L Anion Gap 14 BUN 9 Creatinine 0.5 L Est GFR ( Amer) > 60 Est GFR (Non-Af Amer) > 60 Random Glucose 82 Calcium 7.4 L Phosphorus 4.3 Magnesium 1.7 Iron 13 L TIBC 170 L % Saturation 7 L Ferritin 300.0 H Total Bilirubin 0.3 AST 100 H ALT 56 H Alkaline Phosphatase 51 Total Creatine Kinase Troponin I Total Protein 6.1 L Albumin 2.4 L Globulin 3.7 Albumin/Globulin Ratio 0.6 L Vitamin B12 859 Urine Color Urine Clarity Urine pH Ur Specific [place] Urine Protein Urine Glucose (UA) Urine Ketones Urine Blood Urine Nitrate Urine Bilirubin Urine Urobilinogen Ur Leukocyte Esterase Urine RBC (Auto) Urine Microscopic WBC Ur Squamous Epith Cells Urine Bacteria Influenza Typ A,B (EIA) Blood Type Confirm 05/17/18 05/17/18 12:24 13:45 WBC RBC Hgb Hct MCV MCH MCHC RDW Plt Count MPV Neut % (Auto) Lymph % (Auto) [place] % (Auto) Eos % (Auto) Baso % (Auto) Neut # (Auto) Lymph # (Auto) [place] # (Auto) Eos # (Auto) Baso # (Auto) Sodium Potassium Chloride Carbon Dioxide Anion Gap BUN Creatinine Est GFR ( Amer) Est GFR (Non-Af Amer) Random Glucose Calcium Phosphorus Magnesium Iron TIBC % Saturation Ferritin Total Bilirubin AST ALT Alkaline Phosphatase Total Creatine Kinase Troponin I Total Protein Albumin Globulin Albumin/Globulin Ratio Vitamin B12 Urine Color Yellow Urine Clarity Clear Urine pH 6.0 Ur Specific [place] 1.014 Urine Protein Negative Urine Glucose (UA) Neg Urine Ketones Trace Urine Blood Negative Urine Nitrate Negative Urine Bilirubin Negative Urine Urobilinogen 0.2-1.0 Ur Leukocyte Esterase Neg Urine RBC (Auto) 1 Urine Microscopic WBC 1 Ur Squamous Epith Cells 1 Urine Bacteria Rare Influenza Typ A,B (EIA) Negative for flu a/b Blood Type Confirm Assessment & Plan (1) Anemia Assessment and Plan: 52 yo with lower GI bleed and Fe deficiency anemia. Elective colonscopy for Saturday Status: Acute
[2018-05-18] MEDS: Sodium Chloride 0.9% 1,000 ML IV SCH ×3 (00:44→17:07)
[2018-05-18 06:55] LABS: BASO % 0.4 % (0.0-2.0); EOS # 0.1 K/uL (0.0-0.7); EOS % 2.3 % (0.0-4.0); HEMOGLOBIN 9.2 g/dL (12.0-16.0); LYMPH # 0.5 K/uL (1.0-4.3); LYMPH % 7.4 % (20.0-40.0); MEAN CELL VOLUME 80.7 fl (81.0-99.0); MEAN CORPUSCULAR HEMOGLOBIN 26.9 pg (27.0-31.0); MEAN CORPUSCULAR HGB CONC 33.4 g/dL (33.0-37.0); MEAN PLATELET VOLUME 7.2 fl (7.2-11.7); MONO # 0.2 K/uL (0.0-0.8); MONO % 2.5 % (0.0-10.0); NEUT # 5.7 K/uL (1.8-7.0); NEUT % 87.4 % (50.0-75.0); RBC 3.43 Mil/uL (3.80-5.20); RED CELL DISTRIBUTION WIDTH 13.8 % (11.5-14.5); WHITE BLOOD COUNT 6.6 K/uL (4.8-10.8)
[2018-05-18 07:15] LABS: ALB/GLOB RATIO 0.7 (1.0-2.1); ALBUMIN 2.5 g/dL (3.5-5.0); ALT/SGPT 54 U/L (9-52); AST/SGOT 101 U/L (14-36); BLOOD UREA NITROGEN 6 mg/dl (7-17); CALCIUM 7.8 mg/dL (8.4-10.2); GFR NON-AFRICAN AMERICAN > 60
[2018-05-18] MEDS ORDERED: Oxycodone/Acetaminophen 5/325 mg Tab PO ONE (10:15)
--- NOTE | 2018-05-18 10:19 | CARD ---
APPROVED REPORT Date of service: 05/16/2018 EKG Measurement Heart [id number] <Conclusion> Normal sinus rhythm Normal ECG
--- NOTE | 2018-05-18 10:36 | CP.PCM.PN ---
<Lawson Hernandez - Last Filed: 05/18/18 11:12> Subjective - Date & Time of Evaluation Date of Evaluation: 05/18/18 Time of Evaluation: 10:36 - Subjective Subjective: pt seen and evaluated at bedside. No acute events overnight. Improved pain and cough but cough is still phlegmous sounding. Slept well. Tolerating PO intake without issue. Reports pain mildly controlled but no real improvement. Has not been OOB yet. Hemodynamically stable. Objective - Vital Signs/Intake and Output Vital Signs (last 24 hours): Temp Pulse Resp BP Pulse Ox 99.7 F H 81 18 94/59 L 88 L 05/18/18 08:04 05/18/18 08:04 05/18/18 08:04 05/18/18 08:04 05/18/18 08:04 - Medications Medications: Current Medications Acetaminophen (Tylenol 325mg Tab) 650 mg PO Q6H PRN PRN Reason: Pain, Mild (1-3) Last Admin: 05/17/18 12:07 Dose: 650 mg Docusate Sodium (Colace) 100 mg PO Q12 [facility] Last Admin: 05/18/18 09:06 Dose: 100 mg Ceftriaxone Sodium 1 gm/ (Sodium Chloride) 100 mls @ 100 mls/hr IVPB DAILY [facility]; Protocol Last Admin: 05/17/18 09:59 Dose: 100 mls/hr Azithromycin 500 mg/ Sodium (Chloride) 250 mls @ 250 mls/hr IVPB DAILY [facility]; Protocol Last Admin: 05/17/18 17:09 Dose: 250 mls/hr Sodium Chloride (Sodium Chloride 0.9%) 1,000 mls @ 125 mls/hr IV .Q8H [facility] Stop: 05/19/18 00:19 Last Admin: 05/18/18 00:44 Dose: 125 mls/hr Morphine Sulfate (Morphine) 2 mg IVP Q6H PRN PRN Reason: Pain, severe (8-10) Last Admin: 05/17/18 00:49 Dose: 2 mg Pantoprazole Sodium (Protonix Inj) 40 mg IVP Q12 [facility] Last Admin: 05/17/18 21:09 Dose: 40 mg Sulfasalazine (Azulfidine) 500 mg PO Q12 [facility] Last Admin: 05/18/18 09:06 Dose: 500 mg Tramadol HCl (Ultram) 50 mg PO Q6H PRN PRN Reason: Pain, moderate (4-7) Last Admin: 05/18/18 05:54 Dose: 50 mg - Labs Labs: 05/18/18 05:12 05/18/18 05:12 PT 11.5 Seconds (9.8-13.1) 05/16/18 18:25 INR 1.0 05/16/18 18:25 APTT 24.2 Seconds (25.6-37.1) L 05/16/18 18:25 - Constitutional Appears: Non-toxic, No Acute Distress - Eye Exam Eye Exam: EOMI, PERRL - ENT Exam ENT Exam: Mucous Membranes Moist - Neck Exam Neck Exam: Normal Inspection - Respiratory Exam Respiratory Exam: Rhonchi, Wheezes, NORMAL BREATHING PATTERN. absent: Chest Wal l Tenderness, Decreased Breath Sounds, Clear to Ausculation Bilateral, Respiratory Distress, Stridor - Cardiovascular Exam Cardiovascular Exam: REGULAR RHYTHM, RRR, +S1, +S2. absent: Gallop, Irregular Rhythm, JVD, Rubs, Murmur - GI/Abdominal Exam GI & Abdominal Exam: Soft, Tenderness, Normal Bowel Sounds. absent: Distended, Firm, Guarding, Rigid, Diminished Bowel Sounds - Extremities Exam Extremities Exam: Full ROM, Normal Inspection. 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 Admitted for anemia and CAP. Plan: Community-Acquired Pneumonia -afebrile -no leukocytosis -Ceftriaxone 1 gm QD -azithromycin 500mg QD -duplex US of LE: no evidence of DVT -blood Cx: negative -Duonebs x1 -[id number] PRN Iron Def Anemia -likely 2/2 to GI losses -H&H 9.1/28.0, no transfusion indicated at this time -repeat H/H: 9.2/27.7 -ferritin: 300, iron: 13, TIBC 170, % saturation 7, B12: 859 -s/p Venofer infusion -monitor H/H -for colonscopy saturday as per GI Rhematoid Arthritis -c/w RA meds -pain control with Ultram/morphine as ordered Transaminasemia -likely 2/2 to chronic APAP use -d/c APAP -liver enzymes improving -follow up labs Diet liquid diet DVT prophylaxis SCD's for now <Kendra Ravi - Last Filed: 05/18/18 15:52> Objective - Vital Signs/Intake and Output Vital Signs (last 24 hours): Temp Pulse Resp BP Pulse Ox 98.3 F 70 19 94/60 L 100 05/18/18 13:07 05/18/18 13:07 05/18/18 13:07 05/18/18 13:07 05/18/18 13:07 - Medications Medications: Current Medications Acetaminophen (Tylenol 325mg Tab) 650 mg PO Q6H PRN PRN Reason: Pain, Mild (1-3) Last Admin: 05/17/18 12:07 Dose: 650 mg Albuterol/Ipratropium (Duoneb 3 Mg/0.5 Mg (3 Ml) Ud) 3 ml INH RQ6 PRN PRN Reason: Shortness of Breath Docusate Sodium (Colace) 100 mg PO Q12 [facility] Last Admin: 05/18/18 09:06 Dose: 100 mg Ceftriaxone Sodium 1 gm/ (Sodium Chloride) 100 mls @ 100 mls/hr IVPB DAILY [facility]; Protocol Last Admin: 05/18/18 10:56 Dose: 100 mls/hr Azithromycin 500 mg/ Sodium (Chloride) 250 mls @ 250 mls/hr IVPB DAILY [facility]; Protocol Last Admin: 05/18/18 10:57 Dose: 250 mls/hr Sodium Chloride (Sodium Chloride 0.9%) 1,000 mls @ 125 mls/hr IV .Q8H [facility] Stop: 05/19/18 00:19 Last Admin: 05/18/18 00:44 Dose: 125 mls/hr Morphine Sulfate (Morphine) 2 mg IVP Q6H PRN PRN Reason: Pain, severe (8-10) Last Admin: 05/17/18 00:49 Dose: 2 mg Pantoprazole Sodium (Protonix Inj) 40 mg IVP Q12 [facility] Last Admin: 05/18/18 10:55 Dose: 40 mg Sulfasalazine (Azulfidine) 500 mg PO Q12 [facility] Last Admin: 05/18/18 09:06 Dose: 500 mg Tramadol HCl (Ultram) 50 mg PO Q6H PRN PRN Reason: Pain, moderate (4-7) Last Admin: 05/18/18 05:54 Dose: 50 mg - Labs Labs: 05/18/18 05:12 05/18/18 05:12 PT 11.5 Seconds (9.8-13.1) 05/16/18 18:25 INR 1.0 05/16/18 18:25 APTT 24.2 Seconds (25.6-37.1) L 05/16/18 18:25 Attending/Attestation - Attestation I have personally seen and examined this patient.: Yes I have fully participated in the care of the patient.: Yes I have reviewed all pertinent clinical information, including history, physical exam and plan: Yes Notes (Text): Pneumonia prob bacterial - rales and wheezing noted on exam - CT of chest : Pulmonary vascular congestion with small bilateral pleural effusions. Left lower lobe patchy airspace opacities, possibly infiltrates versus confluent edema. 6 mm right upper lobe nodule. Twelve month CT follow-up can be obtained to assess for stability. - Flu swab: neg - cont IV Ceftraixone and Azithro - Sputum c/s Mycoplasma - Legionella : neg - fever resolved today Anemia, chronic likely due to chronic dis - Venofer x1 given - GI consulted - plan fopr Colonoscopy once PNA resolves - Stool Guaiac Hyponatremia IVF hydration Transaminitis - ? sec to infection vs meds - trending down Rheumatoid Arthritis - cont home meds 05/18/18 15:50 05/18/18 15:51
[2018-05-18] MEDS ORDERED: Albuterol-Ipratrop 3 mg / 0.5 (3 ml) UD INH ONE (10:46)
[2018-05-18] MEDS: Azithromycin 500 MG in Sodium Chloride 0.9% 250 ML IVPB SCH (10:57)
--- NOTE | 2018-05-18 15:33 | CP.PCM.PN ---
Subjective - Date & Time of Evaluation Date of Evaluation: 05/18/18 Time of Evaluation: 15:31 - Subjective Subjective: Patient with cough and feels weak Objective - Vital Signs/Intake and Output Vital Signs (last 24 hours): Temp Pulse Resp BP Pulse Ox 98.3 F 70 19 94/60 L 100 05/18/18 13:07 05/18/18 13:07 05/18/18 13:07 05/18/18 13:07 05/18/18 13:07 - Medications Medications: Current Medications Acetaminophen (Tylenol 325mg Tab) 650 mg PO Q6H PRN PRN Reason: Pain, Mild (1-3) Last Admin: 05/17/18 12:07 Dose: 650 mg Albuterol/Ipratropium (Duoneb 3 Mg/0.5 Mg (3 Ml) Ud) 3 ml INH RQ6 PRN PRN Reason: Shortness of Breath Docusate Sodium (Colace) 100 mg PO Q12 [facility] Last Admin: 05/18/18 09:06 Dose: 100 mg Ceftriaxone Sodium 1 gm/ (Sodium Chloride) 100 mls @ 100 mls/hr IVPB DAILY [facility]; Protocol Last Admin: 05/18/18 10:56 Dose: 100 mls/hr Azithromycin 500 mg/ Sodium (Chloride) 250 mls @ 250 mls/hr IVPB DAILY [facility]; Protocol Last Admin: 05/18/18 10:57 Dose: 250 mls/hr Sodium Chloride (Sodium Chloride 0.9%) 1,000 mls @ 125 mls/hr IV .Q8H [facility] Stop: 05/19/18 00:19 Last Admin: 05/18/18 00:44 Dose: 125 mls/hr Morphine Sulfate (Morphine) 2 mg IVP Q6H PRN PRN Reason: Pain, severe (8-10) Last Admin: 05/17/18 00:49 Dose: 2 mg Pantoprazole Sodium (Protonix Inj) 40 mg IVP Q12 [facility] Last Admin: 05/18/18 10:55 Dose: 40 mg Sulfasalazine (Azulfidine) 500 mg PO Q12 [facility] Last Admin: 05/18/18 09:06 Dose: 500 mg Tramadol HCl (Ultram) 50 mg PO Q6H PRN PRN Reason: Pain, moderate (4-7) Last Admin: 05/18/18 05:54 Dose: 50 mg - Labs Labs: 05/18/18 05:12 05/18/18 05:12 PT 11.5 Seconds (9.8-13.1) 05/16/18 18:25 INR 1.0 05/16/18 18:25 APTT 24.2 Seconds (25.6-37.1) L 05/16/18 18:25 - Head Exam Head Exam: ATRAUMATIC - Eye Exam Eye Exam: Normal appearance - ENT Exam ENT Exam: Normal Exam - Neck Exam Neck Exam: Normal Inspection - Respiratory Exam Respiratory Exam: Rales, Rhonchi - Cardiovascular Exam Cardiovascular Exam: REGULAR RHYTHM - GI/Abdominal Exam GI & Abdominal Exam: Soft, Tenderness Assessment and Plan (1) Anemia Assessment & Plan: Patient on CT found to have area of consolidation in lungs. Will postpone colonoscopy untill pulmonary processes resolve. Status: Acute
[2018-05-18] MEDS: Albuterol-Ipratrop 3 mg / 0.5 (3 ml) UD INH PRN (17:46)
[2018-05-19 05:32] LABS: HEMOGLOBIN 8.1 g/dL (12.0-16.0); MEAN CELL VOLUME 79.7 fl (81.0-99.0); MEAN CORPUSCULAR HEMOGLOBIN 26.3 pg (27.0-31.0); RBC 3.09 Mil/uL (3.80-5.20); RED CELL DISTRIBUTION WIDTH 13.5 % (11.5-14.5); WHITE BLOOD COUNT 5.7 K/uL (4.8-10.8)
[2018-05-19 05:36] LABS: ALB/GLOB RATIO 0.6 (1.0-2.1); ALBUMIN 2.1 g/dL (3.5-5.0); ALT/SGPT 48 U/L (9-52); AST/SGOT 94 U/L (14-36); BLOOD UREA NITROGEN 6 mg/dl (7-17); CALCIUM 7.5 mg/dL (8.4-10.2); GFR NON-AFRICAN AMERICAN > 60
[2018-05-19] MEDS: Azithromycin 500 MG in Sodium Chloride 0.9% 250 ML IVPB SCH (08:56)
--- NOTE | 2018-05-19 09:57 | CP.PCM.PN ---
Subjective - Date & Time of Evaluation Date of Evaluation: 05/19/18 Time of Evaluation: 09:54 - Subjective Subjective: Progress note for Dr. Bellamy, Pt seen and evaluated at bedside. Denies acute events overnight. Patient states the pain is better and cough is improving. Admits to thigh pain. Slept well. Tolerating PO intake without issue. Has not been OOB yet. Hemodynamically stable. Objective - Vital Signs/Intake and Output Vital Signs (last 24 hours): Temp Pulse Resp BP Pulse Ox 98.5 F 79 18 93/56 L 100 05/19/18 08:51 05/19/18 08:51 05/19/18 08:51 05/19/18 08:51 05/19/18 08:51 - Medications Medications: Current Medications Acetaminophen (Tylenol 325mg Tab) 650 mg PO Q6H PRN PRN Reason: Pain, Mild (1-3) Last Admin: 05/19/18 05:30 Dose: 650 mg Albuterol/Ipratropium (Duoneb 3 Mg/0.5 Mg (3 Ml) Ud) 3 ml INH RQ6 PRN PRN Reason: Shortness of Breath Last Admin: 05/18/18 17:46 Dose: 3 ml Docusate Sodium (Colace) 100 mg PO Q12 [facility] Last Admin: 05/19/18 08:52 Dose: 100 mg Vancomycin HCl 1 gm/ Sodium (Chloride) 250 mls @ 166.667 mls/hr IVPB Q12 [facility]; Protocol Piperacillin Sod/Tazobactam (Sod 4.5 gm/ Sodium Chloride) 100 mls @ 100 mls/hr IVPB Q6 [facility]; Protocol Azithromycin 500 mg/ Sodium (Chloride) 250 mls @ 250 mls/hr IVPB DAILY [facility]; Protocol Last Admin: 05/19/18 08:56 Dose: 250 mls/hr Morphine Sulfate (Morphine) 2 mg IVP Q6H PRN PRN Reason: Pain, severe (8-10) Last Admin: 05/17/18 00:49 Dose: 2 mg Pantoprazole Sodium (Protonix Inj) 40 mg IVP Q12 [facility] Last Admin: 05/19/18 08:53 Dose: 40 mg Sulfasalazine (Azulfidine) 500 mg PO Q12 [facility] Last Admin: 05/19/18 08:52 Dose: 500 mg Tramadol HCl (Ultram) 50 mg PO Q6H PRN PRN Reason: Pain, moderate (4-7) Last Admin: 05/18/18 05:54 Dose: 50 mg - Labs Labs: 05/19/18 04:30 05/19/18 04:30 PT 11.5 Seconds (9.8-13.1) 05/16/18 18:25 INR 1.0 05/16/18 18:25 APTT 24.2 Seconds (25.6-37.1) L 05/16/18 18:25 - Constitutional Appears: Well, Non-toxic, No Acute Distress - Head Exam Head Exam: ATRAUMATIC, NORMAL INSPECTION - Eye Exam Eye Exam: EOMI, PERRL - Respiratory Exam Respiratory Exam: Rhonchi, Wheezes, NORMAL BREATHING PATTERN. absent: Chest Wall Tenderness, Decreased Breath Sounds, Clear to Ausculation Bilateral - Cardiovascular Exam Cardiovascular Exam: REGULAR RHYTHM, +S1, +S2. absent: Clicks, Diastolic murmur, Gallop, Irregular Rhythm - GI/Abdominal Exam GI & Abdominal Exam: Soft, Tenderness, Normal Bowel Sounds. absent: Distended, Firm, Guarding - Extremities Exam Extremities Exam: Full ROM, Normal Inspection. 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 Admitted for anemia and CAP. Plan: Superinfection and Community-Acquired Pneumonia -100.8 5:00 am 3/4. -no leukocytosis -CT of chest : Pulmonary vascular congestion with small bilateral pleural effusions. Left lower lobe patchy airspace opacities, possibly infiltrates versus confluent edema; 6 mm right upper lobe nodule. Twelve month CT follow-up can be obtained to assess for stability. -Ceftriaxone 1 gm QD d/c -Superinfection: azithromycin 500mg QD, Vancomycin 1 gm Q12, Zosyn 4.5 gm Q6 -duplex US of LE: no evidence of DVT -blood Cx: negative -Sputum cx: normal oral gwyn - legionella: negative -[id number] PRN Iron Def Anemia -likely 2/2 to GI losses -H&H 8.1/24.4 -ferritin: 300, iron: 13, TIBC 170, % saturation 7, B12: 859 -s/p Venofer infusion -monitor H/H -Per Dr. Guillermo- postpone colonoscopy until pulmonary processes resolve -f/u Stool occult Rhematoid Arthritis -c/w RA meds -pain control with Ultram/morphine as ordered Transaminasemia -likely 2/2 to chronic APAP use -APAP d/c -liver enzymes improving -follow up labs Diet regular diet; tolerating well. DVT prophylaxis SCD's
[2018-05-19] MEDS: Piperacillin/Tazobact 4.5 GM in Sodium Chloride 0.9% 100 ML IVPB SCH ×3 (12:47→23:00)
[2018-05-19] MEDS: Albuterol-Ipratrop 3 mg / 0.5 (3 ml) UD INH PRN (14:41)
[2018-05-19 20:35] LABS: CREATININE, RANDOM URINE 40.2 mg/dL
[2018-05-20] MEDS: Piperacillin/Tazobact 4.5 GM in Sodium Chloride 0.9% 100 ML IVPB SCH ×4 (05:16→23:00)
[2018-05-20 06:31] LABS: HEMOGLOBIN 8.7 g/dL (12.0-16.0); MEAN CELL VOLUME 79.3 fl (81.0-99.0); MEAN CORPUSCULAR HEMOGLOBIN 26.4 pg (27.0-31.0); MEAN CORPUSCULAR HGB CONC 33.2 g/dL (33.0-37.0); RBC 3.28 Mil/uL (3.80-5.20); RED CELL DISTRIBUTION WIDTH 13.9 % (11.5-14.5); WHITE BLOOD COUNT 6.3 K/uL (4.8-10.8)
[2018-05-20 07:18] LABS: ALB/GLOB RATIO 0.6 (1.0-2.1); ALBUMIN 2.3 g/dL (3.5-5.0); ALT/SGPT 55 U/L (9-52); AST/SGOT 106 U/L (14-36); BLOOD UREA NITROGEN 4 mg/dl (7-17); CALCIUM 7.5 mg/dL (8.4-10.2); GFR NON-AFRICAN AMERICAN > 60
[2018-05-20] MEDS: Azithromycin 500 MG in Sodium Chloride 0.9% 250 ML IVPB SCH (08:38)
--- NOTE | 2018-05-20 10:02 | CP.PCM.PN ---
Subjective - Date & Time of Evaluation Date of Evaluation: 05/20/18 Time of Evaluation: 09:59 - Subjective Subjective: Progress note for Dr. Bellamy, Pt seen and evaluated at bedside. Denies acute events overnight. Patient states the pain is better and cough is improving. Admits to thigh hip and hand pain. Slept well. Tolerating PO intake without issue, however states she only eats fruits. Has not been OOB yet. Patient states her last bowel movement was this morning, however forgot to tell the nurse for stool test. Hemodynamically stable. Objective - Vital Signs/Intake and Output Vital Signs (last 24 hours): Temp Pulse Resp BP Pulse Ox 99 F 86 20 104/64 91 L 05/20/18 08:27 05/20/18 08:27 05/20/18 08:27 05/20/18 08:27 05/20/18 08:27 - Medications Medications: Current Medications Acetaminophen (Tylenol 325mg Tab) 650 mg PO Q6H PRN PRN Reason: Pain, Mild (1-3) Last Admin: 05/19/18 05:30 Dose: 650 mg Albuterol/Ipratropium (Duoneb 3 Mg/0.5 Mg (3 Ml) Ud) 3 ml INH RQ6 PRN PRN Reason: Shortness of Breath Last Admin: 05/19/18 14:41 Dose: 3 ml Docusate Sodium (Colace) 100 mg PO Q12 [facility] Last Admin: 05/20/18 08:34 Dose: 100 mg Vancomycin HCl 1 gm/ Sodium (Chloride) 250 mls @ 166.667 mls/hr IVPB Q12 [facility]; Protocol Last Admin: 05/20/18 09:36 Dose: 166.667 mls/hr Piperacillin Sod/Tazobactam (Sod 4.5 gm/ Sodium Chloride) 100 mls @ 100 mls/hr IVPB Q6 [facility]; Protocol Last Admin: 05/20/18 09:33 Dose: 100 mls/hr Azithromycin 500 mg/ Sodium (Chloride) 250 mls @ 250 mls/hr IVPB DAILY [facility]; Protocol Last Admin: 05/20/18 08:38 Dose: 250 mls/hr Iron Sucrose 100 mg/ Sodium (Chloride) 105 mls @ 105 mls/hr IVPB DAILY [facility] Morphine Sulfate (Morphine) 2 mg IVP Q6H PRN PRN Reason: Pain, severe (8-10) Last Admin: 05/17/18 00:49 Dose: 2 mg Pantoprazole Sodium (Protonix Inj) 40 mg IVP Q12 [facility] Last Admin: 05/20/18 08:35 Dose: 40 mg Sulfasalazine (Azulfidine) 500 mg PO Q12 [facility] Last Admin: 05/20/18 08:35 Dose: 500 mg Tramadol HCl (Ultram) 50 mg PO Q6H PRN PRN Reason: Pain, moderate (4-7) Last Admin: 05/20/18 05:21 Dose: 50 mg - Labs Labs: 05/20/18 05:50 05/20/18 05:50 PT 11.5 Seconds (9.8-13.1) 05/16/18 18:25 INR 1.0 05/16/18 18:25 APTT 24.2 Seconds (25.6-37.1) L 05/16/18 18:25 - Constitutional Appears: Well, Non-toxic - Head Exam Head Exam: ATRAUMATIC - Eye Exam Eye Exam: Normal appearance Pupil Exam: NORMAL ACCOMODATION, PERRL - Respiratory Exam Respiratory Exam: Clear to Ausculation Bilateral, NORMAL BREATHING PATTERN. 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 Admitted for anemia and CAP. Plan: Superinfection and Community-Acquired Left lower lobe Pneumonia -101.8 5:03 pm 3/4. -no leukocytosis -CT of chest : Pulmonary vascular congestion with small bilateral pleural effusions. Left lower lobe patchy airspace opacities, possibly infiltrates versus confluent edema; 6 mm right upper lobe nodule. Twelve month CT follow-up can be obtained to assess for stability. -Ceftriaxone 1 gm QD d/c -Superinfection: azithromycin 500mg QD, Vancomycin 1 gm Q12, Zosyn 4.5 gm Q6 -duplex US of LE: no evidence of DVT -blood Cx: negative -Sputum cx: normal oral gwyn - legionella: negative -[id number] PRN Hyponatremia Urine lytes , serum and urine Osmolalities- WNL Most likely secondary to Pneumonia Nephrology consult placed; appreciate recs. Dr. Wagner recommends TSH, uric acid, cortisone level, complement total, CPK level and ANCA - rule out SIADH Iron Def Anemia -likely 2/2 to GI losses -H&H 8.7/26.0 -32 ferritin: 300, iron: 13, TIBC 170, % saturation 7, B12: 859 -Venofer infusion -Per Dr. Guillermo- postpone colonoscopy until pulmonary processes resolve -f/u Stool occult - enema ordered secondary to no BM since 05/16; patient refuses. Rhematoid Arthritis -c/w Sulfasalazine -pain control with Ultram/morphine as ordered Transaminasemia -likely 2/2 to chronic APAP use -APAP d/c -liver enzymes improving; AST/ALT Low -follow up labs Symptomatic Urinary tract infection -Urine cx: streptococcus anginosus sensitive to vancomycin Diet regular diet; tolerating well. DVT prophylaxis SCD's
--- NOTE | 2018-05-20 10:37 | CP.PCM.CON ---
History of Present Illness - History of Present Illness History of Present Illness: pt is seen and examined, full consult is dictated #[id number] 1. Hyponatremai , most likley sec to SIADH sec to pain 2. anemia, 3. joint pain, muscle pains, abnormal lft's, anemia, r/o Mixed connective tissue disorder r/o vasculitis, r/o Fibromyalogia check bmp in am, check fe,tibc, ferritin, b12, folic acid repeat comple serology, AMANDA, c3, c4, roman ab, DS- dna ab, SPEP, SIF, rep;eat HIV, hept. b, c serology ANCA -c , ANCA-p, anti GBM ab anlgesics may need to start steroids will consider tolvaptan if serum na does not improve Past Patient History - Infectious Disease Hx of Infectious Diseases: None - Past Medical History & Family History Past Medical History?: Yes - Past Social History Smoking Status: Never Smoked - CARDIAC Hx Hypertension: Yes (not on medicine) - PULMONARY Hx Respiratory Disorders: No - NEUROLOGICAL Hx Neurological Disorder: No - HEENT Hx HEENT Problems: No - RENAL Hx Chronic Kidney Disease: No - ENDOCRINE/METABOLIC Hx Diabetes Mellitus Type 2: Yes (not on medicine) - HEMATOLOGICAL/ONCOLOGICAL Hx Blood Disorders: No - INTEGUMENTARY Hx Dermatological Problems: No - MUSCULOSKELETAL/RHEUMATOLOGICAL Hx Rheumatoid Arthritis: Yes - GASTROINTESTINAL Hx Gastritis: Yes - PSYCHIATRIC Hx Substance Use: No - SURGICAL HISTORY Hx Surgeries: Yes Hx Section: Yes (x5) - ANESTHESIA Hx Anesthesia: Yes Hx Anesthesia Reactions: No Hx Malignant Hyperthermia: No Meds Allergies/Adverse Reactions: Allergies Allergy/AdvReac Type Severity Reaction Status Date / Time No Known Allergies Allergy Verified 05/16/18 17:32 - Medications Medications: Current Medications Acetaminophen (Tylenol 325mg Tab) 650 mg PO Q6H PRN PRN Reason: Pain, Mild (1-3) Last Admin: 05/19/18 05:30 Dose: 650 mg Albuterol/Ipratropium (Duoneb 3 Mg/0.5 Mg (3 Ml) Ud) 3 ml INH RQ6 PRN PRN Reason: Shortness of Breath Last Admin: 05/19/18 14:41 Dose: 3 ml Docusate Sodium (Colace) 100 mg PO Q12 [facility] Last Admin: 05/20/18 08:34 Dose: 100 mg Vancomycin HCl 1 gm/ Sodium (Chloride) 250 mls @ 166.667 mls/hr IVPB Q12 [facility]; Protocol Last Admin: 05/20/18 09:36 Dose: 166.667 mls/hr Piperacillin Sod/Tazobactam (Sod 4.5 gm/ Sodium Chloride) 100 mls @ 100 mls/hr IVPB Q6 [facility]; Protocol Last Admin: 05/20/18 09:33 Dose: 100 mls/hr Azithromycin 500 mg/ Sodium (Chloride) 250 mls @ 250 mls/hr IVPB DAILY [facility]; P rotocol Last Admin: 05/20/18 08:38 Dose: 250 mls/hr Iron Sucrose 100 mg/ Sodium (Chloride) 105 mls @ 105 mls/hr IVPB DAILY [facility] Morphine Sulfate (Morphine) 2 mg IVP Q6H PRN PRN Reason: Pain, severe (8-10) Last Admin: 05/17/18 00:49 Dose: 2 mg Pantoprazole Sodium (Protonix Inj) 40 mg IVP Q12 [facility] Last Admin: 05/20/18 08:35 Dose: 40 mg Sulfasalazine (Azulfidine) 500 mg PO Q12 [facility] Last Admin: 05/20/18 08:35 Dose: 500 mg Tramadol HCl (Ultram) 50 mg PO Q6H PRN PRN Reason: Pain, moderate (4-7) Last Admin: 05/20/18 05:21 Dose: 50 mg Results - Vital Signs Recent Vital Signs: Last Vital Signs Temp 99 F 05/20/18 08:27 Pulse 86 05/20/18 08:27 Resp 20 05/20/18 08:27 BP 104/64 05/20/18 08:27 Pulse Ox 91 L 05/20/18 08:27 - Labs Result Diagrams: 05/20/18 05:50 05/20/18 05:50 Labs: Laboratory Results - last 24 hr 05/19/18 05/19/18 05/20/18 19:12 20:00 05:50 WBC 6.3 RBC 3.28 L Hgb 8.7 L Hct 26.0 L MCV 79.3 L MCH 26.4 L MCHC 33.2 RDW 13.9 Plt Count 262 Sodium Potassium Chloride Carbon Dioxide Anion Gap BUN Creatinine Est GFR ( Amer) Est GFR (Non-Af Amer) Random Glucose Serum Osmolality 269 L Calcium Total Bilirubin AST ALT Alkaline Phosphatase Total Protein Albumin Globulin Albumin/Globulin Ratio Urine Osmolality 262 L Ur Random Creatinine 40.2 Ur Random Sodium 55 Ur Random Potassium 18.9 05/20/18 05:50 WBC RBC Hgb Hct MCV MCH MCHC RDW Plt Count Sodium 127 L Potassium 4.0 Chloride 98 Carbon Dioxide 20 L Anion Gap 13 BUN 4 L Creatinine 0.5 L Est GFR ( Amer) > 60 Est GFR (Non-Af Amer) > 60 Random Glucose 83 Serum Osmolality Calcium 7.5 L Total Bilirubin 0.2 AST 106 H ALT 55 H Alkaline Phosphatase 67 Total Protein 6.1 L Albumin 2.3 L Globulin 3.8 Albumin/Globulin Ratio 0.6 L Urine Osmolality Ur Random Creatinine Ur Random Sodium Ur Random Potassium
[2018-05-20 10:44] LABS: URIC ACID 2.3 mg/Dl (2.2-7.5)
[2018-05-20] MEDS ORDERED: Nystatin 100,000 Units/ml Oral Susp 5 ml UD PO SCH (13:00)
[2018-05-20] MEDS: guaiFENesin 100 mg/5 ml Syrup UD PO PRN ×2 (16:26→22:52)
--- NOTE | 2018-05-20 20:26 | CP.PCM.PN ---
Subjective - Date & Time of Evaluation Date of Evaluation: 05/20/18 Time of Evaluation: 09:00 - Subjective Subjective: Cough appears to be better. Being seen by renal today for hyponatremia Objective - Vital Signs/Intake and Output Vital Signs (last 24 hours): Temp Pulse Resp BP Pulse Ox 98.6 F 97 H 20 105/66 95 05/20/18 19:45 05/20/18 18:09 05/20/18 18:09 05/20/18 18:09 05/20/18 18:09 - Medications Medications: Current Medications Acetaminophen (Tylenol 325mg Tab) 650 mg PO Q6H PRN PRN Reason: Pain, Mild (1-3) Last Admin: 05/20/18 16:04 Dose: 650 mg Albuterol/Ipratropium (Duoneb 3 Mg/0.5 Mg (3 Ml) Ud) 3 ml INH RQ6 PRN PRN Reason: Shortness of Breath Last Admin: 05/19/18 14:41 Dose: 3 ml Docusate Sodium (Colace) 100 mg PO Q12 [facility] Last Admin: 05/20/18 08:34 Dose: 100 mg Fluconazole (Diflucan) 100 mg PO DAILY [facility]; Protocol Guaifenesin (Robitussin) 100 mg PO Q6 PRN PRN Reason: Cough Last Admin: 05/20/18 16:26 Dose: 100 mg Vancomycin HCl 1 gm/ Sodium (Chloride) 250 mls @ 166.667 mls/hr IVPB Q12 [facility]; Protocol Last Admin: 05/20/18 09:36 Dose: 166.667 mls/hr Piperacillin Sod/Tazobactam (Sod 4.5 gm/ Sodium Chloride) 100 mls @ 100 mls/hr IVPB Q6 [facility]; Protocol Last Admin: 05/20/18 16:30 Dose: 100 mls/hr Azithromycin 500 mg/ Sodium (Chloride) 250 mls @ 250 mls/hr IVPB DAILY [facility]; Protocol Last Admin: 05/20/18 08:38 Dose: 250 mls/hr Iron Sucrose 100 mg/ Sodium (Chloride) 105 mls @ 105 mls/hr IVPB DAILY [facility] Last Admin: 05/20/18 13:11 Dose: 105 mls/hr Morphine Sulfate (Morphine) 2 mg IVP Q6H PRN PRN Reason: Pain, severe (8-10) Last Admin: 05/17/18 00:49 Dose: 2 mg Pantoprazole Sodium (Protonix Inj) 40 mg IVP Q12 [facility] Last Admin: 05/20/18 08:35 Dose: 40 mg Sulfasalazine (Azulfidine) 500 mg PO Q12 [facility] Last Admin: 05/20/18 08:35 Dose: 500 mg Tramadol HCl (Ultram) 50 mg PO Q6H PRN PRN Reason: Pain, moderate (4-7) Last Admin: 05/20/18 05:21 Dose: 50 mg - Labs Labs: 05/20/18 05:50 05/20/18 05:50 PT 11.5 Seconds (9.8-13.1) 05/16/18 18:25 INR 1.0 05/16/18 18:25 APTT 24.2 Seconds (25.6-37.1) L 05/16/18 18:25 - Head Exam Head Exam: ATRAUMATIC - Eye Exam Eye Exam: Normal appearance - ENT Exam ENT Exam: Normal Exam - Neck Exam Neck Exam: Normal Inspection - Respiratory Exam Respiratory Exam: Rhonchi - Cardiovascular Exam Cardiovascular Exam: REGULAR RHYTHM - GI/Abdominal Exam GI & Abdominal Exam: Soft. absent: Tenderness Assessment and Plan (1) Anemia Assessment & Plan: Patient with unexplained iron deficiency anemia. Colonoscopy when pulmonary process resolves and hyponatremia corrected. Status: Acute
[2018-05-21] MEDS: Piperacillin/Tazobact 4.5 GM in Sodium Chloride 0.9% 100 ML IVPB SCH ×4 (04:35→23:11)
[2018-05-21 07:15] LABS: HEMOGLOBIN 8.5 g/dL (12.0-16.0); MEAN CELL VOLUME 80.9 fl (81.0-99.0); MEAN CORPUSCULAR HEMOGLOBIN 26.9 pg (27.0-31.0); MEAN CORPUSCULAR HGB CONC 33.2 g/dL (33.0-37.0); RBC 3.15 Mil/uL (3.80-5.20); RED CELL DISTRIBUTION WIDTH 14.1 % (11.5-14.5); WHITE BLOOD COUNT 6.8 K/uL (4.8-10.8)
[2018-05-21 07:44] LABS: ALB/GLOB RATIO 0.6 (1.0-2.1); ALBUMIN 2.2 g/dL (3.5-5.0); ALT/SGPT 59 U/L (9-52); AST/SGOT 116 U/L (14-36); BLOOD UREA NITROGEN 5 mg/dl (7-17); CALCIUM 7.7 mg/dL (8.4-10.2); GFR NON-AFRICAN AMERICAN > 60
[2018-05-21 07:45] LABS: IRON 25 ug/dL (37-170)
[2018-05-21 07:55] LABS: % IRON SATURATION 17 % (20-55); TOTAL IRON BINDING CAPACITY 152 ug/dL (250-450)
--- NOTE | 2018-05-21 09:16 | CON ---
DATE: 05/20/2018 RENAL CONSULTATION LOCATION: Room 655, bed 2. REQUESTED BY: . REASON FOR RENAL CONSULTATION: Hyponatremia for further evaluation. HISTORY OF PRESENT ILLNESS: Ms. Vora is a 52-year-old female with a past medical history significant for hypertension, hyperlipidemia, gastritis, recently diagnosed rheumatoid arthritis who was seen by PMD on the day of admission and sent her for the evaluation of upper GI bleed. The patient was also evaluated in the ED on 05/07/2018 and 05/11/2018. The patient was admitted with chief complaints of joint pain in the knees and shoulders and also hands and also pain in both thigh regions for the last two months and also complains of cough associated with white sputum for the last two months and occasional fever. Denies any chest pain or palpitations. Denies any nausea, vomiting, or diarrhea. Denies any abdominal pain. As per the patient's , the patient recently started taking naproxen and diclofenac for the joint pain and found to have recently black stools and which were discontinued as per the patient's . The patient is not in acute distress. Still complains of cough on and off. PAST MEDICAL HISTORY: Significant for hypertension, not on any medications. Diabetes, on metformin 500 mg p.o. b.i.d. Hyperlipidemia, recently diagnosed rheumatoid arthritis. PAST SURGICAL HISTORY: . ALLERGIES: NO KNOWN DRUG ALLERGIES. SOCIAL HISTORY: No smoking. No alcohol. No drugs. PERSONAL HISTORY: She is . CURRENT MEDICATIONS: Prior to the hospitalization, Pepcid 20 mg p.o. b.i.d., metformin 500 mg b.i.d., glyburide, naproxen, Tamiflu and also diclofenac. Her current medications in the hospital include azithromycin 500 mg daily and sulfasalazine 500 mg p.o. every 12 hours, Colace 100 mg p.o. every 12 hours, Diflucan 100 mg p.o. daily, DuoNeb inhaler and morphine 2 mg IV every 6 hours p.r.n. Zosyn 4.5 g every 6 hours, Protonix 40 mg IV every 12 hours, Robitussin 100 mg p.o. every 6 hours, Tylenol, tramadol 50 mg p.o. every 6 hours, and vancomycin 1 g every 12 hours. FAMILY HISTORY: Not significant. REVIEW OF SYSTEMS: Significant for joint pain and cough for the last two months and fever on and off for the last two months. PHYSICAL EXAMINATION: VITAL SIGNS: Blood pressure this morning 104/64, pulse 86, respirations 20, temperature 99, saturation 91%. Height is 5 feet 3 inches. Weight is 131 pounds. GENERAL: Ms. Vora is a 52-year-old, middle-aged female, moderately built, moderately nourished, not in acute distress. HEENT: Pupils normal and reactive to light and accommodation. Conjunctivae slightly pale. Sclerae anicteric. Tongue is moist. Trachea is midline. LUNGS: Symmetric on both sides. Bilateral breath sounds present. No crackles. CARDIOVASCULAR SYSTEM: [place] at the fifth intercostal space, midclavicular line. S1 and S2 audible. No murmur. No gallop. ABDOMEN: Normal in appearance. Soft, tympanitic. No guarding. No rigidity. No hepatosplenomegaly. CENTRAL NERVOUS SYSTEM: The patient is alert, awake, oriented x3. Nonfocal neuro examination. Cranial nerves II through XII grossly intact. Sensory and motor system is within normal limits. EXTREMITIES: No cyanosis. No clubbing. No edema. LABORATORY DATA: Include as follows: As of 05/16/2018, WBC 7.8, hemoglobin 9.1, hematocrit 28, platelets 283, and neutrophils 82, bands 2, lymph 10, monos 4, eosinophils 2. PT 11.5, PTT 24.2. Sodium 127, potassium 4.7, chloride 93, CO2 of 21, BUN 9, creatinine 0.5, glucose 78, calcium 8.5. Other laboratory data; total bili 0.3, AST 120, ALT 63, alkaline phosphatase 74. CPK 867 and troponin 0.012 and total protein 7.1, albumin is 2.9 and globulin is 4.2. As of 05/17/2018, urinalysis yellow clear, pH 6, specific gravity 1.014, protein negative, glucose negative, ketones negative, blood negative, nitrites negative, bilirubin negative, urobilinogen is 0.2 to 1, leukocyte esterase is negative; rbc 1, wbc 1, bacteria rare and influenza antibody is negative and mycoplasma antibody is negative and urine of legionella antigen is negative. As of 05/18/2018, serum sodium 130, total protein 6.4, albumin 2.5, globulin 3.9. Other laboratory data as of 05/20/2018, WBC 6.3, hemoglobin 8.7, hematocrit 26, MCV 79.3, platelets 262. Sodium 127, potassium 4, chloride 98, CO2 of 20, BUN 4, creatinine 0.5, glucose 83, uric acid 2.3, calcium 7.4, total bili 0.2, AST 106, ALT 55, alkaline phosphatase 67, total protein 6.1, albumin 2.3, total globulin 3.8. Other laboratory data; urine osmolality 262, urine creatinine is 40.2, urine sodium is 55, urine potassium is 18.9, and serum osmolality is 269 and serum uric acid is 2.3, and TSH is 1.93. Chest x-ray as of 05/16/2018, no interval acute cardiopulmonary disease appreciated. Extremity ultrasound as of 05/16/2018, no evidence of deep vein thrombosis. CT of the chest as of 05/17/2018, impression, pulmonary vascular congestion with small bilateral pleural effusions, left lower lobe patchy air space opacities, possibly infiltrates versus confluent edema, 6-mm right upper lobe nodule. A 12-month CT followup can be obtained to assess for stability. Review of the labs from the previous admissions. As of 01/07/2018, WBC 5.4, hemoglobin 12.5, hematocrit is 36.7, platelets 192. As of 05/07/2018, H and H 9.5, hemoglobin 28.9, WBC 6.1, and platelets 279. ESR as of 05/07/2018 is 52. Other laboratory data, rheumatoid factor as of 02/26/2018, IgG is 6 and IgA is less than 5, rheumatoid factor of IgM is less than 5. Cyclic citrullinated peptide IgG is less than 16 and AMANDA is negative and SSA antibody is less than 1 and SSB antibody negative and Lama antibody is 3.9 and [employer] is 4.7. Other laboratory data as of 05/07/2018, influenza A and B antibody is positive and repeat antibody as of 05/17/2018 is negative and QuantiFERON-TB is negative and ASO titers was negative as of 05/02/2018. HIV antibody screening was negative as of 09/13/2016. Hep C viral RNA as of 09/13/2016, was negative. Hepatitis B surface antigen was negative as of 09/13/2016. ASSESSMENT AND PLAN: In summary, Ms. Vora is a 52-year-old middle-aged female with a past medical history of diabetes, questionable hypertension with history of joint pain and history of anemia for the last four to five months, noticed in February and occasional cough and fever and also muscle pains. Rheumatoid factor was negative in the past and Lama antibody was 3.9 and [employer] C[employer] OPERATOR was positive. AMANDA was negative as of 02/26/2018 with low sodium. 1. Hyponatremia, most likely secondary to syndrome of inappropriate antidiuretic hormone secondary to pain. Rule out adrenal insufficiency also. 2. Anemia, etiology is not clear at this time. 3. Muscle pain and joint pain. Rule out fibromyalgia. Rule out mixed connective tissue disorder. PLAN: Repeat AMANDA, C3/C4, and repeat STEPHANY 1 and 2, Lama antibody, [employer] C[employer] OPERATOR and double-stranded DNA and also check c-ANCA and p-ANCA and also check serum immunoelectrophoresis and urine immunoelectrophoresis and serum immunofixation also. We will follow with you. Thank you for allowing me to participate in your interesting patient's care. Case discussed with residents in rounds and we will follow with you. Magalie Perry MD
--- NOTE | 2018-05-21 10:41 | CP.PCM.PN ---
Subjective - Date & Time of Evaluation Date of Evaluation: 05/21/18 Time of Evaluation: 10:41 - Subjective Subjective: Progress note for Dr. Ravi, Pt seen and evaluated at bedside. Denies acute events overnight. Patient states she has been experiencing severe thigh pain and cough has been getting worse. Admits to thigh hip and hand pain. Tolerating PO intake without any issue, however states she only eats fruits and milk. Has not been OOB yet due to thigh pain. Patient states her last bowel movement was this morning. Hemodynamically stable. Objective - Vital Signs/Intake and Output Vital Signs (last 24 hours): Temp Pulse Resp BP Pulse Ox 97.7 F 67 20 113/74 98 05/21/18 08:37 05/21/18 08:37 05/21/18 08:37 05/21/18 08:37 05/21/18 08:37 - Medications Medications: Current Medications Acetaminophen (Tylenol 325mg Tab) 650 mg PO Q6H PRN PRN Reason: Pain, Mild (1-3) Last Admin: 05/20/18 16:04 Dose: 650 mg Albuterol/Ipratropium (Duoneb 3 Mg/0.5 Mg (3 Ml) Ud) 3 ml INH RQ6 PRN PRN Reason: Shortness of Breath Last Admin: 05/19/18 14:41 Dose: 3 ml Docusate Sodium (Colace) 100 mg PO Q12 [facility] Last Admin: 05/21/18 10:26 Dose: 100 mg Fluconazole (Diflucan) 100 mg PO DAILY [facility]; Protocol Last Admin: 05/21/18 10:26 Dose: 100 mg Guaifenesin (Robitussin) 100 mg PO Q6 PRN PRN Reason: Cough Last Admin: 05/20/18 22:52 Dose: 100 mg Vancomycin HCl 1 gm/ Sodium (Chloride) 250 mls @ 166.667 mls/hr IVPB Q12 [facility]; Protocol Last Admin: 05/20/18 20:55 Dose: 166.667 mls/hr Piperacillin Sod/Tazobactam (Sod 4.5 gm/ Sodium Chloride) 100 mls @ 100 mls/hr IVPB Q6 [facility]; Protocol Last Admin: 05/21/18 04:35 Dose: 100 mls/hr Azithromycin 500 mg/ Sodium (Chloride) 250 mls @ 250 mls/hr IVPB DAILY [facility]; Protocol Last Admin: 05/20/18 08:38 Dose: 250 mls/hr Iron Sucrose 100 mg/ Sodium (Chloride) 105 mls @ 105 mls/hr IVPB DAILY [facility] Last Admin: 05/21/18 10:27 Dose: 105 mls/hr Morphine Sulfate (Morphine) 2 mg IVP Q6H PRN PRN Reason: Pain, severe (8-10) Last Admin: 05/17/18 00:49 Dose: 2 mg Pantoprazole Sodium (Protonix Inj) 40 mg IVP Q12 [facility] Last Admin: 05/21/18 10:26 Dose: 40 mg Sulfasalazine (Azulfidine) 500 mg PO Q12 [facility] Last Admin: 05/21/18 10:26 Dose: 500 mg Tramadol HCl (Ultram) 50 mg PO Q6H PRN PRN Reason: Pain, moderate (4-7) Last Admin: 05/20/18 05:21 Dose: 50 mg - Labs Labs: 05/21/18 06:40 05/21/18 06:40 PT 11.5 Seconds (9.8-13.1) 05/16/18 18:25 INR 1.0 05/16/18 18:25 APTT 24.2 Seconds (25.6-37.1) L 05/16/18 18:25 - Constitutional Appears: Well, Non-toxic - Head Exam Head Exam: ATRAUMATIC - Eye Exam Eye Exam: Normal appearance Pupil Exam: NORMAL ACCOMODATION - ENT Exam ENT Exam: Mucous Membranes Moist - Extremities Exam Extremities Exam: Tenderness. 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 Admitted for anemia and CAP. Plan: Superinfection and Community-Acquired Left lower lobe Pneumonia -101.8 5:03 pm 3/4. -no leukocytosis -CT of chest : Pulmonary vascular congestion with small bilateral pleural effusions. Left lower lobe patchy airspace opacities, possibly infiltrates versus confluent edema; 6 mm right upper lobe nodule. Twelve month CT follow-up can be obtained to assess for stability. -Ceftriaxone 1 gm QD d/c -Superinfection: azithromycin 500mg QD, Vancomycin 1 gm Q12, Zosyn 4.5 gm Q6 -duplex US of LE: no evidence of DVT -blood Cx: negative -Sputum cx: staphylococcus aureus, yeast - legionella: negative -[id number] PRN -loading dose solumedrol 125 mg followed by [id number] mg Q12 Hyponatremia Urine lytes , serum and urine Osmolalities- WNL Most likely secondary to Pneumonia Nephrology consult placed; appreciate recs. Complete serology ordered to rule out SIADH/ vasculitis/mixed connective tissue disorder Iron Def Anemia -likely 2/2 to GI losses -H&H 8.5/25.5 -3/2 ferritin: 300, iron: 13, TIBC 170, % saturation 7, B12: 859 -Venofer infusion -Per Dr. Guillermo- postpone colonoscopy until pulmonary processes resolve -f/u Stool occult Rhematoid Arthritis -c/w Sulfasalazine -pain control with Ultram/morphine as ordered Transaminasemia -likely 2/2 to chronic APAP use -APAP d/c -liver enzymes improving; AST/ALT Low -follow up labs Symptomatic Urinary tract infection -Urine cx: streptococcus anginosus sensitive to vancomycin Diet regular diet; tolerating well. DVT prophylaxis SCD's Oral thrush -Diflucan ordered.
--- NOTE | 2018-05-21 12:21 | CP.PCM.PN ---
Subjective - Date & Time of Evaluation Date of Evaluation: 05/21/18 Time of Evaluation: 12:20 - Subjective Subjective: pt is seen and examined, follow up consult is dictated #[id number] serum na is improving, picture c/w Siadh sec to pain serology w/u in progress, r/o PIYUSH r/o vasculitis Objective - Vital Signs/Intake and Output Vital Signs (last 24 hours): Temp Pulse Resp BP Pulse Ox 97.7 F 67 20 113/74 98 05/21/18 08:37 05/21/18 08:37 05/21/18 08:37 05/21/18 08:37 05/21/18 08:37 - Medications Medications: Current Medications Acetaminophen (Tylenol 325mg Tab) 650 mg PO Q6H PRN PRN Reason: Pain, Mild (1-3) Last Admin: 05/21/18 10:43 Dose: 650 mg Albuterol/Ipratropium (Duoneb 3 Mg/0.5 Mg (3 Ml) Ud) 3 ml INH RQ6 PRN PRN Reason: Shortness of Breath Last Admin: 05/19/18 14:41 Dose: 3 ml Docusate Sodium (Colace) 100 mg PO Q12 [facility] Last Admin: 05/21/18 10:26 Dose: 100 mg Fluconazole (Diflucan) 100 mg PO DAILY [facility]; Protocol Last Admin: 05/21/18 10:26 Dose: 100 mg Guaifenesin (Robitussin) 100 mg PO Q6 PRN PRN Reason: Cough Last Admin: 05/20/18 22:52 Dose: 100 mg Vancomycin HCl 1 gm/ Sodium (Chloride) 250 mls @ 166.667 mls/hr IVPB Q12 [facility]; Protocol Last Admin: 05/20/18 20:55 Dose: 166.667 mls/hr Piperacillin Sod/Tazobactam (Sod 4.5 gm/ Sodium Chloride) 100 mls @ 100 mls/hr IVPB Q6 [facility]; Protocol Last Admin: 05/21/18 10:36 Dose: 100 mls/hr Azithromycin 500 mg/ Sodium (Chloride) 250 mls @ 250 mls/hr IVPB DAILY [facility]; Protocol Last Admin: 05/20/18 08:38 Dose: 250 mls/hr Iron Sucrose 100 mg/ Sodium (Chloride) 105 mls @ 105 mls/hr IVPB DAILY [facility] Last Admin: 05/21/18 10:27 Dose: 105 mls/hr Morphine Sulfate (Morphine) 2 mg IVP Q6H PRN PRN Reason: Pain, severe (8-10) Last Admin: 05/17/18 00:49 Dose: 2 mg Pantoprazole Sodium (Protonix Inj) 40 mg IVP Q12 [facility] Last Admin: 05/21/18 10:26 Dose: 40 mg Sulfasalazine (Azulfidine) 500 mg PO Q12 [facility] Last Admin: 05/21/18 10:26 Dose: 500 mg Tramadol HCl (Ultram) 50 mg PO Q6H PRN PRN Reason: Pain, moderate (4-7) Last Admin: 05/20/18 05:21 Dose: 50 mg - Labs Labs: 05/21/18 06:40 05/21/18 06:40 PT 11.5 Seconds (9.8-13.1) 05/16/18 18:25 INR 1.0 05/16/18 18:25 APTT 24.2 Seconds (25.6-37.1) L 05/16/18 18:25
[2018-05-21 13:03] LABS: COMPLEMENT C4 12.2 mg/dL (14.0-44.0)
[2018-05-21 13:08] LABS: COMPLEMENT C3 < 40.0 mg/dL (88.0-165.0)
[2018-05-21 13:34] LABS: FOLATE 12.7 ng/mL
[2018-05-21] MEDS ORDERED: methylPREDNISolone 125 MG in Sodium Chloride 0.9% 50 ML IVPB ONE (13:43)
[2018-05-21] MEDS: Azithromycin 500 MG in Sodium Chloride 0.9% 250 ML IVPB SCH (14:25)
[2018-05-21] MEDS: Albuterol-Ipratrop 3 mg / 0.5 (3 ml) UD INH SCH ×2 (15:08→19:51)
[2018-05-21 16:57] LABS: HEPATITIS B SURFACE AG Negative (NEGATIVE)
[2018-05-21] MEDS ORDERED: methylPREDNISolone 40 MG in Sodium Chloride 0.9% 50 ML IV SCH (17:00)
[2018-05-21] MEDS ORDERED: MethylPREDNISolone 40 mg Vial IV SCH (17:00)
[2018-05-21 17:03] LABS: HEPATITIS A IGM NEGATIVE (NEGATIVE); HEPATITIS B CORE AB NEGATIVE (NEGATIVE)
[2018-05-21 17:15] LABS: HEPATITIS C ANTIBODY NEGATIVE (NEGATIVE)
[2018-05-21] MEDS ORDERED: methylPREDNISolone 40 MG in Sodium Chloride 0.9% 50 ML IVPB SCH (21:00)
[2018-05-21] MEDS: MethylPREDNISolone 40 mg Vial IV SCH (21:28)
[2018-05-21 21:35] LABS: INFLUENZA TYPE A AB 1:16 titer (<1:8); INFLUENZA TYPE B AB <1:8 titer (<1:8)
--- NOTE | 2018-05-22 02:18 | PN ---
DATE: 05/21/2018 FOLLOWUP RENAL CONSULTATION LOCATION: The patient is located in room 655, bed 2. REQUESTING BY: . REASON FOR FOLLOWUP: Hyponatremia for further evaluation. SUBJECTIVE: Ms. Vora is a 52-year-old middle-aged female with a past medical history significant for diabetes, questionable hypertension, who was admitted with chief complaints of generalized body aches and pain in both thigh muscles and also cough and fever on and off. The patient was seen by me yesterday for evaluation of hyponatremia. The patient is feeling slightly better today, not in distress. Still complains of muscle pains and joint pains. PHYSICAL EXAMINATION: VITAL SIGNS: Blood pressure this morning 113/74, pulse 67, respirations 20, temperature 97.7, saturation 98%, height 5 feet and 3 inches, weight is 131 pounds, and T-max is 101.6. GENERAL: Mrs. Vora is a 52-year-old middle-aged female, moderately built, moderately nourished, not in acute distress. Looks pale. HEENT: Pupils are normal and reactive to light and accommodation. Conjunctivae slightly pale. Sclerae anicteric. Tongue is moist. Trachea is midline. LUNGS: Symmetric on both sides. Bilateral breath sounds present. Clear to auscultation. CARDIOVASCULAR SYSTEM: Robson of the fifth intercostal space, midclavicular line. S1 and S2 audible. No murmur or gallop. ABDOMEN: Normal in appearance. Soft, tympanitic. No guarding. No rigidity. No hepatosplenomegaly. CENTRAL NERVOUS SYSTEM: The patient is alert, awake, oriented x3. Nonfocal neuro examination. Cranial nerves II through XII grossly intact. Sensory and motor system is within normal limits. EXTREMITIES: No cyanosis. No clubbing. No edema. CURRENT MEDICATIONS: Include as follows: Azithromycin 500 mg IV daily, sulfasalazine 500 mg p.o. every 12 hours, Colace 100 mg p.o. every 12 hours, Diflucan 100 mg p.o. daily, DuoNeb inhaler, iron sucrose 100 mg daily, morphine sulphate 2 mg IV every 6 hours p.r.n., Zosyn 4.5 g IV every 6 hours, Protonix 40 mg IV every 12 hours and Solu-Medrol 40 mg IV b.i.d. and Tylenol and vancomycin 1 g every 12 hours. LABORATORY DATA: As follows: As of 05/21/2018, WBC 6.8, hemoglobin 8.5, hematocrit 25.5, platelets 180. Sodium 130, potassium 3.7, chloride 99, CO2 of 20, BUN 5, creatinine 0.5, glucose 78, calcium 7.5. Iron is 25, and TIBC 152, saturation 17, and ferritin 671. Total bilirubin 0.3, AST 116, ALT 59, alkaline phosphatase 64, total protein 5.9, albumin is 2.2. Stool for occult blood is negative and complement level C3 is less than 40 and C4 is 12.2 and hepatitis C antibody IgM is negative, hepatitis B surface antigen negative. Hepatitis B core antibody IgM is negative. Hepatitis C antibody is negative. ASSESSMENT: In summary, Mrs. Vora is a 52-year-old middle-aged female with history of diabetes, questionable hypertension who was admitted with two months history of cough and fever on and off, joint pains, body aches, and anemia, status post treatment for influenza and low complement levels. Previously, the patient has positive Lama antibody and [employer] and AMANDA was negative. Repeat serology is pending. Rheumatoid factor was also negative in the past. 1. Hyponatremia, most likely secondary to syndrome of inappropriate antidiuretic hormone secretion secondary to pain. 2. Rule out mixed connective tissue disorder, rule out lupus, rule out vasculitis. Doubt rheumatoid arthritis at this time. PLAN: Continue antibiotics as per the primary team. Continue analgesics as needed and also continue IV iron. Agree with starting Solu-Medrol 40 mg every 12 hours with pending serology. Consider rheumatology evaluation if possible, and if not, consider to transfer to [facility] and [facility] Rheumatoid [facility] is possible. We will follow with you. Thank you for allowing me to participate in your patient's care. Magalie Perry MD
[2018-05-22] MEDS: Piperacillin/Tazobact 4.5 GM in Sodium Chloride 0.9% 100 ML IVPB SCH ×4 (04:38→23:00)
[2018-05-22] MEDS: Albuterol-Ipratrop 3 mg / 0.5 (3 ml) UD INH SCH ×4 (07:50→19:20)
[2018-05-22] MEDS: MethylPREDNISolone 40 mg Vial IV SCH ×2 (09:42→21:04)
[2018-05-22] MEDS: Azithromycin 500 MG in Sodium Chloride 0.9% 250 ML IVPB SCH (09:50)
[2018-05-22 11:27] LABS: RNP >8.0 AI (<1.0)
[2018-05-22 11:27] LABS: RNP >8.0 AI (<1.0)
--- NOTE | 2018-05-22 11:38 | CP.PCM.PN ---
<Jess Ivy - Last Filed: 05/22/18 11:34> Subjective - Date & Time of Evaluation Date of Evaluation: 05/22/18 Time of Evaluation: 11:35 - Subjective Subjective: Progress note for Dr. Ravi, Pt seen and evaluated at bedside. Denies acute events overnight. Patient states she has been experiencing severe thigh pain for the last few days and has been feeling a lot better today. Patient states the cough is also getting better. Tolerating PO intake without any issue, however states she only eats fruits and milk. States she has been trying to walk with her . Patient admits to loose black stool, states she had to use the bathroom multiple times throughout the night. Hemodynamically stable. Objective - Vital Signs/Intake and Output Vital Signs (last 24 hours): Temp Pulse Resp BP Pulse Ox 97.8 F 87 20 115/86 96 05/22/18 08:17 05/22/18 08:17 05/22/18 08:17 05/22/18 08:17 05/22/18 08:17 - Medications Medications: Current Medications Acetaminophen (Tylenol 325mg Tab) 650 mg PO Q6H PRN PRN Reason: Pain, Mild (1-3) Last Admin: 05/21/18 10:43 Dose: 650 mg Albuterol/Ipratropium (Duoneb 3 Mg/0.5 Mg (3 Ml) Ud) 3 ml INH RQ6 PRN PRN Reason: Shortness of Breath Last Admin: 05/19/18 14:41 Dose: 3 ml Albuterol/Ipratropium (Duoneb 3 Mg/0.5 Mg (3 Ml) Ud) 3 ml INH RQID [facility] Last Admin: 05/22/18 11:03 Dose: 3 ml Docusate Sodium (Colace) 100 mg PO Q12 [facility] Last Admin: 05/22/18 09:42 Dose: 100 mg Fluconazole (Diflucan) 100 mg PO DAILY [facility]; Protocol Last Admin: 05/22/18 09:41 Dose: 100 mg Guaifenesin (Robitussin) 100 mg PO Q6 PRN PRN Reason: Cough Last Admin: 05/20/18 22:52 Dose: 100 mg Vancomycin HCl 1 gm/ Sodium (Chloride) 250 mls @ 166.667 mls/hr IVPB Q12 [facility]; Protocol Last Admin: 05/22/18 09:43 Dose: 166.667 mls/hr Piperacillin Sod/Tazobactam (Sod 4.5 gm/ Sodium Chloride) 100 mls @ 100 mls/hr IVPB Q6 [facility]; Protocol Last Admin: 05/22/18 09:40 Dose: 100 mls/hr Azithromycin 500 mg/ Sodium (Chloride) 250 mls @ 250 mls/hr IVPB DAILY [facility]; Protocol Last Admin: 05/22/18 09:50 Dose: 250 mls/hr Iron Sucrose 100 mg/ Sodium (Chloride) 105 mls @ 105 mls/hr IVPB DAILY [facility] Last Admin: 05/22/18 09:40 Dose: 105 mls/hr Methylprednisolone (Solu-Medrol) 40 mg IV BID@0900,2100 [facility] Last Admin: 05/22/18 09:42 Dose: 40 mg Morphine Sulfate (Morphine) 2 mg IVP Q6H PRN PRN Reason: Pain, severe (8-10) Last Admin: 05/17/18 00:49 Dose: 2 mg Pantoprazole Sodium (Protonix Inj) 40 mg IVP Q12 [facility] Last Admin: 05/22/18 09:42 Dose: 40 mg Sulfasalazine (Azulfidine) 500 mg PO Q12 [facility] Last Admin: 05/22/18 09:41 Dose: 500 mg Tramadol HCl (Ultram) 50 mg PO Q6H PRN PRN Reason: Pain, moderate (4-7) Last Admin: 05/20/18 05:21 Dose: 50 mg - Labs Labs: 05/21/18 06:40 05/21/18 06:40 PT 11.5 Seconds (9.8-13.1) 05/16/18 18:25 INR 1.0 05/16/18 18:25 APTT 24.2 Seconds (25.6-37.1) L 05/16/18 18:25 - Constitutional Appears: Well, Non-toxic - Head Exam Head Exam: ATRAUMATIC, NORMOCEPHALIC - Eye Exam Eye Exam: Normal appearance Pupil Exam: NORMAL ACCOMODATION - ENT Exam ENT Exam: Mucous Membranes Moist - Respiratory Exam Respiratory Exam: Clear to Ausculation Bilateral, NORMAL BREATHING PATTERN - Cardiovascular Exam Cardiovascular Exam: REGULAR RHYTHM, +S1, +S2 - Neurological Exam Neurological Exam: Alert, Awake Assessment and Plan - Assessment and Plan (Free Text) Assessment: 52 y/o female with PMH RA recently diagnosed with Influenza and treated with Tamiflu was sent for evaluation to ER by PMD for joint pain , arthralgia, myalgia , Low Hgb and black stool. Patient diagnosed with Bilateral Pleural effusion and LLL CAP and started on Rocephin and Zithromax IV Anemia work up ordered and GI consulted Hgb remains stable at 8.7 .Occult blood still pending. Started Venofer IV for iron deficiency Tmax 101.6 in the last 24 hours. Feeling a little better but still with myalgia especially her arms and her thighs.Cough has improve but with coarse breath sounds bilaterally , wheezing and decreased BS LLL Plan: Superinfection and Community-Acquired Left lower lobe Pneumonia -101.8 5:03 pm 3/. -no leukocytosis -CT of chest : Pulmonary vascular congestion with small bilateral pleural effusions. Left lower lobe patchy airspace opacities, possibly infiltrates versus confluent edema; 6 mm right upper lobe nodule. Twelve month CT follow-up can be obtained to assess for stability. -Ceftriaxone 1 gm QD d/c -Superinfection: azithromycin 500mg QD, Vancomycin 1 gm Q12, Zosyn 4.5 gm Q6 -duplex US of LE: no evidence of DVT -blood Cx: negative -Sputum cx: staphylococcus aureus, yeast - legionella: negative .Myalgia with elevated CPK -[id number] PRN -unclear etiology -possible mixed connective tissue disorder vs rheumatologic disorder -loading dose solumedrol 125 mg followed by [id number] mg Q12 Hyponatremia Urine lytes , serum and urine Osmolalities- WNL Sodium-130 Most likely secondary to Pneumonia Nephrology consult placed; appreciate recs. Complete serology ordered to rule out SIADH/ vasculitis/mixed connective tissue disorder Iron Def Anemia -likely 2/2 to GI losses -H&H 8.5/25.5 -3/2 ferritin: 300, iron: 13, TIBC 170, % saturation 7, B12: 859 -Venofer infusion -Per Dr. Guillermo- postpone colonoscopy until pulmonary processes resolve -f/u Stool occult Rhematoid Arthritis -c/w Sulfasalazine -pain control with Ultram/morphine as ordered Transaminasemia -likely 2/2 to chronic APAP use -APAP d/c -liver enzymes improving; AST/ALT Low -follow up labs Symptomatic Urinary tract infection -Urine cx: streptococcus anginosus sensitive to vancomycin Diet regular diet; tolerating well. DVT prophylaxis SCD's Oral thrush -Diflucan ordered - Resolving <Kendra Ravi - Last Filed: 05/22/18 16:00> Objective - Vital Signs/Intake and Output Vital Signs (last 24 hours): Temp Pulse Resp BP Pulse Ox 97.8 F 87 20 115/86 96 05/22/18 08:17 05/22/18 08:17 05/22/18 08:17 05/22/18 08:17 05/22/18 08:17 - Medications Medications: Current Medications Acetaminophen (Tylenol 325mg Tab) 650 mg PO Q6H PRN PRN Reason: Pain, Mild (1-3) Last Admin: 05/21/18 10:43 Dose: 650 mg Albuterol/Ipratropium (Duoneb 3 Mg/0.5 Mg (3 Ml) Ud) 3 ml INH RQ6 PRN PRN Reason: Shortness of Breath Last Admin: 05/19/18 14:41 Dose: 3 ml Albuterol/Ipratropium (Duoneb 3 Mg/0.5 Mg (3 Ml) Ud) 3 ml INH RQID [facility] Last Admin: 05/22/18 15:16 Dose: 3 ml Fluconazole (Diflucan) 100 mg PO DAILY [facility]; Protocol Last Admin: 05/22/18 09:41 Dose: 100 mg Guaifenesin (Robitussin) 100 mg PO Q6 PRN PRN Reason: Cough Last Admin: 05/20/18 22:52 Dose: 100 mg Vancomycin HCl 1 gm/ Sodium (Chloride) 250 mls @ 166.667 mls/hr IVPB Q12 [facility]; Protocol Last Admin: 05/22/18 09:43 Dose: 166.667 mls/hr Piperacillin Sod/Tazobactam (Sod 4.5 gm/ Sodium Chloride) 100 mls @ 100 mls/hr IVPB Q6 [facility]; Protocol Last Admin: 05/22/18 09:40 Dose: 100 mls/hr Azithromycin 500 mg/ Sodium (Chloride) 250 mls @ 250 mls/hr IVPB DAILY [facility]; Protocol Last Admin: 05/22/18 09:50 Dose: 250 mls/hr Iron Sucrose 100 mg/ Sodium (Chloride) 105 mls @ 105 mls/hr IVPB DAILY [facility] Last Admin: 05/22/18 09:40 Dose: 105 mls/hr Methylprednisolone (Solu-Medrol) 40 mg IV BID@0900,2100 [facility] Last Admin: 05/22/18 09:42 Dose: 40 mg Morphine Sulfate (Morphine) 2 mg IVP Q6H PRN PRN Reason: Pain, severe (8-10) Last Admin: 05/17/18 00:49 Dose: 2 mg Pantoprazole Sodium (Protonix Inj) 40 mg IVP Q12 [facility] Last Admin: 05/22/18 09:42 Dose: 40 mg Sulfasalazine (Azulfidine) 500 mg PO Q12 [facility] Last Admin: 05/22/18 09:41 Dose: 500 mg Tramadol HCl (Ultram) 50 mg PO Q6H PRN PRN Reason: Pain, moderate (4-7) Last Admin: 05/20/18 05:21 Dose: 50 mg - Labs Labs: 05/21/18 06:40 05/21/18 06:40 PT 11.5 Seconds (9.8-13.1) 05/16/18 18:25 INR 1.0 05/16/18 18:25 APTT 24.2 Seconds (25.6-37.1) L 05/16/18 18:25 Attending/Attestation - Attestation I have personally seen and examined this patient.: Yes I have fully participated in the care of the patient.: Yes I have reviewed all pertinent clinical information, including history, physical exam and plan: Yes Notes (Text): Pneumonia prob bacterial - CT of chest : Pulmonary vascular congestion with small bilateral pleural effusions. Left lower lobe patchy airspace opacities, possibly infiltrates versus confluent edema. 6 mm right upper lobe nodule. Twelve month CT follow-up can be obtained to assess for stability. - Mycoplasma and Legionella : neg - fever resolved - Sputum c/s: Staph aureus, yeast - Pt on IV Zosyn and Vanco - added Diflucan due to yeast in Sputum UTI - Urine c/s : Strep - pt on Zosyn and Vanco Anemia, chronic likely due to chronic dis - Venofer x1 given - GI consulted - plan for Colonoscopy as outpt - Stool Guaiac negative x 2 Hyponatremia IVF hydration Transaminitis - ? sec to infection vs meds - Hepatitis screen negative Rheumatoid Arthritis, Connective Tissue Dis - cont home med - Double Standed DNA , PIE CUTTER antibody and Anti Lama all positive - pt sees Dr Meier as Rheumatology - advised to ff up on d/c - started on IV Solumedrol Influenza A - pt completed Tamiflu as outpt
--- NOTE | 2018-05-22 11:47 | CP.PCM.PN ---
Subjective - Date & Time of Evaluation Date of Evaluation: 05/22/18 Time of Evaluation: 11:45 - Subjective Subjective: pt is seen and examined, follow up consult is dictated #[id number] Objective - Vital Signs/Intake and Output Vital Signs (last 24 hours): Temp Pulse Resp BP Pulse Ox 97.8 F 87 20 115/86 96 05/22/18 08:17 05/22/18 08:17 05/22/18 08:17 05/22/18 08:17 05/22/18 08:17 - Medications Medications: Current Medications Acetaminophen (Tylenol 325mg Tab) 650 mg PO Q6H PRN PRN Reason: Pain, Mild (1-3) Last Admin: 05/21/18 10:43 Dose: 650 mg Albuterol/Ipratropium (Duoneb 3 Mg/0.5 Mg (3 Ml) Ud) 3 ml INH RQ6 PRN PRN Reason: Shortness of Breath Last Admin: 05/19/18 14:41 Dose: 3 ml Albuterol/Ipratropium (Duoneb 3 Mg/0.5 Mg (3 Ml) Ud) 3 ml INH RQID [facility] Last Admin: 05/22/18 11:03 Dose: 3 ml Docusate Sodium (Colace) 100 mg PO Q12 [facility] Last Admin: 05/22/18 09:42 Dose: 100 mg Fluconazole (Diflucan) 100 mg PO DAILY [facility]; Protocol Last Admin: 05/22/18 09:41 Dose: 100 mg Guaifenesin (Robitussin) 100 mg PO Q6 PRN PRN Reason: Cough Last Admin: 05/20/18 22:52 Dose: 100 mg Vancomycin HCl 1 gm/ Sodium (Chloride) 250 mls @ 166.667 mls/hr IVPB Q12 [facility]; Protocol Last Admin: 05/22/18 09:43 Dose: 166.667 mls/hr Piperacillin Sod/Tazobactam (Sod 4.5 gm/ Sodium Chloride) 100 mls @ 100 mls/hr IVPB Q6 [facility]; Protocol Last Admin: 05/22/18 09:40 Dose: 100 mls/hr Azithromycin 500 mg/ Sodium (Chloride) 250 mls @ 250 mls/hr IVPB DAILY [facility]; Protocol Last Admin: 05/22/18 09:50 Dose: 250 mls/hr Iron Sucrose 100 mg/ Sodium (Chloride) 105 mls @ 105 mls/hr IVPB DAILY [facility] Last Admin: 05/22/18 09:40 Dose: 105 mls/hr Methylprednisolone (Solu-Medrol) 40 mg IV BID@0900,2100 [facility] Last Admin: 05/22/18 09:42 Dose: 40 mg Morphine Sulfate (Morphine) 2 mg IVP Q6H PRN PRN Reason: Pain, severe (8-10) Last Admin: 05/17/18 00:49 Dose: 2 mg Pantoprazole Sodium (Protonix Inj) 40 mg IVP Q12 [facility] Last Admin: 05/22/18 09:42 Dose: 40 mg Sulfasalazine (Azulfidine) 500 mg PO Q12 [facility] Last Admin: 05/22/18 09:41 Dose: 500 mg Tramadol HCl (Ultram) 50 mg PO Q6H PRN PRN Reason: Pain, moderate (4-7) Last Admin: 05/20/18 05:21 Dose: 50 mg - Labs Labs: 05/21/18 06:40 05/21/18 06:40 PT 11.5 Seconds (9.8-13.1) 05/16/18 18:25 INR 1.0 05/16/18 18:25 APTT 24.2 Seconds (25.6-37.1) L 05/16/18 18:25
--- NOTE | 2018-05-23 00:47 | CP.PCM.PN ---
Subjective - Date & Time of Evaluation Date of Evaluation: 05/22/18 Time of Evaluation: 09:00 - Subjective Subjective: Still with cough though better. Tolerating small amounts of food. Afebrile today. Objective - Vital Signs/Intake and Output Vital Signs (last 24 hours): Temp Pulse Resp BP Pulse Ox 97.8 F 86 18 133/76 95 05/22/18 23:42 05/22/18 23:42 05/22/18 23:42 05/22/18 23:42 05/22/18 23:42 - Medications Medications: Current Medications Acetaminophen (Tylenol 325mg Tab) 650 mg PO Q6H PRN PRN Reason: Pain, Mild (1-3) Last Admin: 05/21/18 10:43 Dose: 650 mg Albuterol/Ipratropium (Duoneb 3 Mg/0.5 Mg (3 Ml) Ud) 3 ml INH RQ6 PRN PRN Reason: Shortness of Breath Last Admin: 05/19/18 14:41 Dose: 3 ml Albuterol/Ipratropium (Duoneb 3 Mg/0.5 Mg (3 Ml) Ud) 3 ml INH RQID [facility] Last Admin: 05/22/18 19:20 Dose: 3 ml Fluconazole (Diflucan) 100 mg PO DAILY [facility]; Protocol Last Admin: 05/22/18 09:41 Dose: 100 mg Guaifenesin (Robitussin) 100 mg PO Q6 PRN PRN Reason: Cough Last Admin: 05/20/18 22:52 Dose: 100 mg Vancomycin HCl 1 gm/ Sodium (Chloride) 250 mls @ 166.667 mls/hr IVPB Q12 [facility]; Protocol Last Admin: 05/22/18 21:05 Dose: 166.667 mls/hr Piperacillin Sod/Tazobactam (Sod 4.5 gm/ Sodium Chloride) 100 mls @ 100 mls/hr IVPB Q6 [facility]; Protocol Last Admin: 05/22/18 23:00 Dose: 100 mls/hr Azithromycin 500 mg/ Sodium (Chloride) 250 mls @ 250 mls/hr IVPB DAILY [facility]; Protocol Last Admin: 05/22/18 09:50 Dose: 250 mls/hr Iron Sucrose 100 mg/ Sodium (Chloride) 105 mls @ 105 mls/hr IVPB DAILY [facility] Last Admin: 05/22/18 09:40 Dose: 105 mls/hr Methylprednisolone (Solu-Medrol) 40 mg IV BID@0900,2100 [facility] Last Admin: 05/22/18 21:04 Dose: 40 mg Morphine Sulfate (Morphine) 2 mg IVP Q6H PRN PRN Reason: Pain, severe (8-10) Last Admin: 05/17/18 00:49 Dose: 2 mg Pantoprazole Sodium (Protonix Inj) 40 mg IVP Q12 [facility] Last Admin: 05/22/18 21:04 Dose: 40 mg Sulfasalazine (Azulfidine) 500 mg PO Q12 [facility] Last Admin: 05/22/18 21:05 Dose: 500 mg Tramadol HCl (Ultram) 50 mg PO Q6H PRN PRN Reason: Pain, moderate (4-7) Last Admin: 05/20/18 05:21 Dose: 50 mg - Labs Labs: 05/21/18 06:40 05/21/18 06:40 PT 11.5 Seconds (9.8-13.1) 05/16/18 18:25 INR 1.0 05/16/18 18:25 APTT 24.2 Seconds (25.6-37.1) L 05/16/18 18:25 - Head Exam Head Exam: ATRAUMATIC - Eye Exam Eye Exam: Normal appearance Pupil Exam: PERRL - ENT Exam ENT Exam: Normal Exam - Neck Exam Neck Exam: Full ROM - Respiratory Exam Respiratory Exam: Clear to Ausculation Bilateral, NORMAL BREATHING PATTERN - GI/Abdominal Exam GI & Abdominal Exam: Soft, Normal Bowel Sounds. absent: Tenderness Assessment and Plan (1) Anemia Assessment & Plan: Hgb has remained stable though anemia is present and iron sat is low. Colonoscopy when stable clinically. Status: Acute
[2018-05-23] MEDS: Piperacillin/Tazobact 4.5 GM in Sodium Chloride 0.9% 100 ML IVPB SCH (03:50)
--- NOTE | 2018-05-23 05:12 | PN ---
DATE: 05/22/2018 FOLLOWUP RENAL CONSULTATION LOCATION: The patient is located in room 655, bed 2. REQUESTED BY: . REASON FOR FOLLOWUP: Hyponatremia and mixed connective tissue disorder. HISTORY OF PRESENT ILLNESS: Ms. Vora is a 52-year-old middle-aged female with history of questionable hypertension, diabetes, not on any medications, who was admitted with a chief complaints of generalized body aches, joint pains, and thigh muscle pains, and also elevated CPK level, anemia, suspected rheumatoid arthritis, and the patient is on sulfasalazine, was also admitted with cough and fever on and off. Now, AMANDA was negative and previous rheumatoid factor and CCP was negative and repeat double-stranded DNA is positive. Lama antibody is positive. Ribonucleoprotein is positive. C3, C4 is also low. ANCA and anti-GBM is pending. The patient was started on Solu-Medrol yesterday 40 mg IV b.i.d. The patient is feeling much better today. Denies any shortness of breath. Less joint pains and muscle pains as per the patient today. PHYSICAL EXAMINATION: VITAL SIGNS: As follows: This morning, blood pressure is 115/86, pulse 87, respirations 20, temperature 97.8, oxygen saturation 96%. Height is 5 feet 3 inches, weight is 131 pounds. GENERAL: Ms. Vora is a 52-year-old middle-aged female, moderately built, moderately nourished, not in acute distress. HEENT: Pupils normal and reactive to light and accommodation. Conjunctivae pink. Sclerae anicteric. Tongue is moist. Trachea is midline. LUNGS: Symmetric on both sides. Bilateral breath sounds present. Clear to auscultation. CARDIOVASCULAR SYSTEM: [place] at the fifth intercostal space, half inch medial to midclavicular line. S1 and S2 audible. No murmur or gallop. ABDOMEN: Normal in appearance, soft, tympanitic. No guarding. No rigidity. No hepatosplenomegaly. CENTRAL NERVOUS SYSTEM: The patient is alert, awake, and oriented x3. Nonfocal neuro examination. Cranial nerves II through XII grossly intact. Sensory and motor system is within normal limits. EXTREMITIES: No cyanosis, no clubbing, no edema. Less joint pains today. CURRENT MEDICATIONS: Include as follows: Azithromycin 500 mg IV p.o. daily, sulfasalazine 100 mg p.o. every 12 hours, fluconazole, DuoNeb inhaler, iron IV 100 mg daily, morphine sulfate 2 mg IV every 6 hours, Zosyn, Protonix, Robitussin, Solu-Medrol, tramadol, and vancomycin. LABORATORY DATA: Include as follows: As of 05/21/2018, stool for occult blood is negative and AMANDA is negative and Lama antibody is positive. PROGRAM SUPPORT CLERK is positive. Double-stranded DNA is positive and complement level C3 is less than 40, C4 is 12.2. CH50 is 32. Hepatitis B, C, and A were negative, and stool for occult blood was also negative. Folic acid 12.7 and TSH is 1.93. As of 05/21/2018, serum sodium is 130. ASSESSMENT AND PLAN: In summary, Ms. Vora is a 52-year-old middle-aged female with questionable hypertension, questionable diabetes, not on any medication who was admitted with cough and shortness of breath and also fever on and off and joints pains and muscle pains with elevated CPK levels also, low H and H, and positive serology for Lama antibody, PROGRAM SUPPORT CLERK, and double-stranded DNA, low complement levels. AMANDA was negative. 1. Hyponatremia, most likely secondary to syndrome of inappropriate antidiuretic hormone secondary to pain. Continue analgesics as needed. 2. 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 Consider rheumatology evaluation if he is available in the hospital. We will follow with you. Thank you for allowing me to participate in your patient's care. Followup other serology workup. Consider to adjust the IV antibiotics. Magalie Perry MD
[2018-05-23 05:50] LABS: ALBUMIN (PEP) 1.9 g/dL (3.8-4.8); ALPHA-1-GLOBULIN (PEP) 0.4 g/dL (0.2-0.3)
[2018-05-23 06:51] LABS: HEMOGLOBIN 8.7 g/dL (12.0-16.0); MEAN CELL VOLUME 80.2 fl (81.0-99.0); MEAN CORPUSCULAR HEMOGLOBIN 26.3 pg (27.0-31.0); MEAN CORPUSCULAR HGB CONC 32.8 g/dL (33.0-37.0); RBC 3.29 Mil/uL (3.80-5.20); RED CELL DISTRIBUTION WIDTH 14.2 % (11.5-14.5); WHITE BLOOD COUNT 9.4 K/uL (4.8-10.8)
[2018-05-23 06:52] LABS: ALB/GLOB RATIO 0.6 (1.0-2.1); ALBUMIN 2.6 g/dL (3.5-5.0); ALT/SGPT 75 U/L (9-52); AST/SGOT 98 U/L (14-36); BLOOD UREA NITROGEN 8 mg/dl (7-17); CALCIUM 7.9 mg/dL (8.4-10.2); GFR NON-AFRICAN AMERICAN > 60
[2018-05-23] MEDS: Albuterol-Ipratrop 3 mg / 0.5 (3 ml) UD INH SCH ×3 (07:15→16:20)
[2018-05-23] MEDS ORDERED: Potassium Chloride 20 mEq ER Tab PO ONE (08:18)
[2018-05-23 08:22] VITALS: O2SAT 93
[2018-05-23] MEDS: MethylPREDNISolone 40 mg Vial IV SCH (09:22)
--- NOTE | 2018-05-23 10:04 | CP.PCM.DIS ---
<IvyJess - Last Filed: 05/23/18 10:01> Provider - Provider Date of Admission: 05/16/18 20:42 Attending physician: Cody Shankar MD Consults: 05/17/18 01:40 Case Management Referral Routine Comment: Physician Instructions: Reason For Exam: needs help @ home with ADL Reason for Referral: Discharge Planning 05/17/18 03:35 Gastroenterology Consult Routine Comment: Consulting Provider: Michael Guillermo Consulting Physician: Michael Guillermo Reason for Consult: Anemia w/ Hb 9.1, reports black stool x 3 days ago 05/20/18 08:54 Nephrology Consult Routine Comment: Consulting Provider: Magalie Perry Consulting Physician: Magalie Perry Reason for Consult: hyponatremia Time Spent in preparation of Discharge (in minutes): 30 Diagnosis - Discharge Diagnosis (1) Pneumonia Status: Resolved Hospital Course - Lab Results Lab Results: Micro Results 05/18/18 19:54 Blood-Venous Blood Culture - Preliminary NO GROWTH AFTER 4 DAYS 05/16/18 19:00 Blood-Venous Blood Culture - Final NO GROWTH AFTER 5 DAYS 05/16/18 19:00 Blood-Venous Gram Stain - Final TEST NOT PERFORMED 05/16/18 18:00 Blood-Venous Blood Culture - Final NO GROWTH AFTER 5 DAYS 05/16/18 18:00 Blood-Venous Gram Stain - Final TEST NOT PERFORMED 05/16/18 18:25 Blood-Venous Blood Culture - Final NO GROWTH AFTER 5 DAYS 05/16/18 18:25 Blood-Venous Gram Stain - Final TEST NOT PERFORMED 05/18/18 17:00 Sputum Gram Stain - Final 05/18/18 17:00 Sputum Sputum Culture - Final Staphylococcus Aureus Yeast Species 05/17/18 13:45 Urine,Clean Catch Urine Culture - Final Streptococcus anginosus group Most Recent Lab Values WBC 9.4 K/uL (4.8-10.8) 05/23/18 05:30 RBC 3.29 Mil/uL (3.80-5.20) L 05/23/18 05:30 Hgb 8.7 g/dL (12.0-16.0) L 05/23/18 05:30 Hct 26.4 % (34.0-47.0) L 05/23/18 05:30 MCV 80.2 fl (81.0-99.0) L 05/23/18 05:30 MCH 26.3 pg (27.0-31.0) L 05/23/18 05:30 MCHC 32.8 g/dL (33.0-37.0) L 05/23/18 05:30 RDW 14.2 % (11.5-14.5) 05/23/18 05:30 Plt Count 257 K/uL (130-400) 05/23/18 05:30 MPV 7.2 fl (7.2-11.7) 05/18/18 05:12 Neut % (Auto) 87.4 % (50.0-75.0) H 05/18/18 05:12 Lymph % (Auto) 7.4 % (20.0-40.0) L 05/18/18 05:12 [place] % (Auto) 2.5 % (0.0-10.0) 05/18/18 05:12 Eos % (Auto) 2.3 % (0.0-4.0) 05/18/18 05:12 Baso % (Auto) 0.4 % (0.0-2.0) 05/18/18 05:12 Neut # (Auto) 5.7 K/uL (1.8-7.0) 05/18/18 05:12 Lymph # (Auto) 0.5 K/uL (1.0-4.3) L 05/18/18 05:12 [place] # (Auto) 0.2 K/uL (0.0-0.8) 05/18/18 05:12 Eos # (Auto) 0.1 K/uL (0.0-0.7) 05/18/18 05:12 Baso # (Auto) 0.0 K/uL (0.0-0.2) 05/18/18 05:12 Neutrophils % (Manual) 82 % (42-75) H 05/16/18 18:25 Band Neutrophils % 2 % (0-2) 05/16/18 18:25 Lymphocytes % (Manual) 10 % (20-50) L 05/16/18 18:25 Monocytes % (Manual) 4 % (0-10) 05/16/18 18:25 Eosinophils % (Manual) 2 % (0-7) 05/16/18 18:25 Platelet Estimate Normal (NORMAL) 05/16/18 18:25 Hypochromasia (manual) Slight 05/16/18 18:25 Poikilocytosis (manual Moderate 05/16/18 18:25 Anisocytosis (manual) Moderate 05/16/18 18:25 Microcytosis (manual) Slight 05/16/18 18:25 Ovalocytes Slight 05/16/18 18:25 PT 11.5 Seconds (9.8-13.1) 05/16/18 18:25 INR 1.0 05/16/18 18:25 APTT 24.2 Seconds (25.6-37.1) L 05/16/18 18:25 pO2 17 mm/Hg (30-55) L 05/16/18 18:13 VBG pH 7.39 (7.32-7.43) 05/16/18 18:13 VBG pCO2 46 mmHg (40-60) 05/16/18 18:13 VBG HCO3 24.6 mmol/L 05/16/18 18:13 VBG Total CO2 29.2 mmol/L (22-28) H 05/16/18 18:13 VBG O2 Sat (Calc) 25.3 % (40-65) L 05/16/18 18:13 VBG Base Excess 2.2 mmol/L (0.0-2.0) H 05/16/18 18:13 VBG Potassium 4.9 mmol/L (3.6-5.2) 05/16/18 18:13 Sodium 129.0 mmol/L (132-148) L 05/16/18 18:13 Chloride 99.0 mmol/L (98-107) 05/16/18 18:13 Glucose 81 mg/dL (65-105) 05/16/18 18:13 Lactate 1.9 mmol/L (0.7-2.1) 05/16/18 18:13 FiO2 21.0 % 05/16/18 18:13 Sodium 136 mmol/l (132-148) 05/23/18 05:30 Potassium 3.3 MMOL/L (3.6-5.0) L 05/23/18 05:30 Chloride 108 mmol/L (98-107) H 05/23/18 05:30 Carbon Dioxide 20 mmol/L (22-30) L 05/23/18 05:30 Anion Gap 11 (10-20) 05/23/18 05:30 BUN 8 mg/dl (7-17) 05/23/18 05:30 Creatinine 0.4 mg/dl (0.7-1.2) L 05/23/18 05:30 Est GFR ( Amer) > 60 05/23/18 05:30 Est GFR (Non-Af Amer) > 60 05/23/18 05:30 Random Glucose 165 mg/dL (65-105) H 05/23/18 05:30 Serum Osmolality 269 mosm/kg (272-300) L 05/19/18 19:12 Uric Acid 2.3 mg/Dl (2.2-7.5) 05/20/18 05:55 Calcium 7.9 mg/dL (8.4-10.2) L 05/23/18 05:30 Phosphorus 4.3 mg/dl (2.5-4.5) 05/17/18 04:15 Magnesium 1.8 MG/DL (1.6-2.3) 05/18/18 05:12 Iron 25 ug/dL (37-170) L 05/21/18 06:40 TIBC 152 ug/dL (250-450) L 05/21/18 06:40 % Saturation 17 % (20-55) L 05/21/18 06:40 Ferritin 671.0 ng/Ml (11.1-264.0) H 05/21/18 06:40 Total Bilirubin 0.3 mg/dl (0.2-1.3) 05/23/18 05:30 AST 98 U/L (14-36) H 05/23/18 05:30 ALT 75 U/L (9-52) H D 05/23/18 05:30 Alkaline Phosphatase 66 U/L (38-126) 05/23/18 05:30 Total Creatine Kinase 1051 U/L (30-135) H 05/20/18 13:00 Troponin I < 0.0120 ng/mL (0.00-0.120) 05/16/18 18:25 Total Protein 6.6 G/DL (6.3-8.2) 05/23/18 05:30 Total Protein (PEP) 5.5 g/dL (6.1-8.1) L 05/21/18 06:40 Albumin 2.6 g/dL (3.5-5.0) L 05/23/18 05:30 Albumin (PEP) 1.9 g/dL (3.8-4.8) L 05/21/18 06:40 Globulin 4.0 gm/dL (2.2-3.9) H 05/23/18 05:30 Albumin/Globulin Ratio 0.6 (1.0-2.1) L 05/23/18 05:30 Vatan-8-Rvkpghutg 0.4 g/dL (0.2-0.3) H 05/21/18 06:40 Nvwhq-0-Pajuuyyoo 0.8 g/dL (0.5-0.9) 05/21/18 06:40 Fnnh-6-Higkgsfu 0.2 g/dL (0.4-0.6) L 05/21/18 06:40 Korv-1-Odpvikvv 0.3 g/dL (0.2-0.5) 05/21/18 06:40 Gamma Globulins 1.9 g/dL (0.8-1.7) H 05/21/18 06:40 Abnorm Protein Band 1 TEST NOT PERFORMED 05/21/18 06:40 Abnorm Protein Band 2 TEST NOT PERFORMED 05/21/18 06:40 Abnorm Protein Band 3 TEST NOT PERFORMED 05/21/18 06:40 Vitamin B12 859 pg/mL (239-931) 05/17/18 04:15 Folate 12.7 ng/mL 05/21/18 06:40 TSH 3rd Generation 1.93 mIU/ML (0.46-4.68) 05/20/18 05:55 Venous Blood Potassium 4.9 mmol/L (3.6-5.2) 05/16/18 18:13 Urine Color Yellow (YELLOW) 05/17/18 12:24 Urine Clarity Clear (Clear) 05/17/18 12:24 Urine pH 6.0 (5.0-8.0) 05/17/18 12:24 Ur Specific [place] 1.014 (1.003-1.030) 05/17/18 12:24 Urine Protein Negative mg/dL (NEGATIVE) 05/17/18 12:24 Urine Glucose (UA) Neg mg/dL (NEGATIVE) 05/17/18 12:24 Urine Ketones Trace mg/dL (NEGATIVE) 05/17/18 12:24 Urine Blood Negative (NEGATIVE) 05/17/18 12:24 Urine Nitrate Negative (NEGATIVE) 05/17/18 12:24 Urine Bilirubin Negative (NEGATIVE) 05/17/18 12:24 Urine Urobilinogen 0.2-1.0 mg/dL (0.2-1.0) 05/17/18 12:24 Ur Leukocyte Esterase Neg Alfa/uL (Negative) 05/17/18 12:24 Urine RBC (Auto) 1 /hpf (0-3) 05/17/18 12:24 Urine Microscopic WBC 1 /hpf (0-5) 05/17/18 12:24 Ur Squamous Epith Cells 1 /hpf (0-5) 05/17/18 12:24 Urine Bacteria Rare (<OCC) 05/17/18 12:24 Urine Osmolality 262 mosm/kg (300-1000) L 05/19/18 20:00 Ur Random Creatinine 40.2 mg/dL 05/19/18 20:00 Ur Random Sodium 55 meq/L 05/19/18 20:00 Ur Random Potassium 18.9 mmol/L 05/19/18 20:00 Stool Occult Blood Negative (NEGATIVE) 05/21/18 11:41 SHANIQUE & SPEP Interp See note 05/21/18 06:40 AMANDA Screen Negative (Negative) 05/21/18 06:40 Proteinase 3 (PR3) <1.0 AI (<1.0) 05/20/18 13:00 Myeloperoxidase Ab <1.0 AI (<1.0) 05/20/18 13:00 Sm (Lama) Antibody 2.4 AI (<1.0) H 05/21/18 12:38 Anti-Lama Interpret Positive (Negative) H 05/21/18 12:38 [employer] WORKER Antibody >8.0 AI (<1.0) H 05/21/18 12:38 [employer] WORKER Antibody Interp Positive (Negative) H 05/21/18 12:38 SM/[employer]ER WORKER Antibody 3.1 AI (<1.0) H 05/21/18 12:38 Sm/[employer] WORKER Antibody Interp Positive (Negative) H 05/21/18 12:38 Double Strand DNA Ab 25 IU/mL H 05/21/18 12:38 Complement C3 < 40.0 mg/dL (88.0-165.0) L 05/21/18 06:40 Complement C4 12.2 mg/dL (14.0-44.0) L 05/21/18 06:40 Tot Complement (CH50) 32 U/mL (31-60) 05/20/18 13:00 Hepatitis A IgM Ab Negative (NEGATIVE) 05/21/18 07:11 Hep Bs Antigen Negative (NEGATIVE) 05/21/18 07:11 Hep B Core IgM Ab Negative (NEGATIVE) 05/21/18 07:11 Hepatitis C Antibody Negative (NEGATIVE) 05/21/18 07:11 Influenza Typ A,B (EIA) Negative for flu a/b (NEGATIVE) 05/17/18 13:45 Influenza Type A Ab 1:16 titer (<1:8) H 05/17/18 13:25 Influenza Type B Ab <1:8 titer (<1:8) 05/17/18 13:25 Ur L.pneumophila Ag Negative (NEGATIVE) 05/18/18 08:14 Mycoplasma pneumon IgM Negative (NEGATIVE) 05/17/18 17:24 Blood Type B POSITIVE 05/16/18 18:25 Blood Type Confirm B POSITIVE 05/17/18 04:15 Antibody Screen Negative 05/16/18 18:25 Crossmatch See Detail 05/16/18 18:25 BBK History Checked No verified bt 05/16/18 18:25 - Hospital Course Hospital Course: 52 y/o female with PMH RA recently diagnosed with Influenza and treated with Tamiflu was sent for evaluation to ER by PMD for joint pain , arthralgia, myalgia , Low Hgb and black stool. Patient diagnosed with Bilateral Pleural effusion and LLL CAP and started on Rocephin and Zithromax IV Anemia work up ordered and GI consulted who recommended outpatient colonoscopy. Hgb remains stable at 8.7 .Occult blood ordered. Started Venofer IV for iron deficiency VSS, absent leukocytosis.. 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 Patient given methylprednisolone 40 mg IV BID. Patients pain under control. Patient denies diarrhea. D/c with augmentin 875 mg BID x 5 days, diflucan for oral thrush x 5 days, medrol dose pack, 40 PO potassium. Advised to follow up [facility] Dr.Gold ariza, wheat grower, and [facility]. - Date & Time of H&P Date of H&P: 05/23/18 Time of H&P: 10:10 Discharge Exam - Head Exam Head Exam: ATRAUMATIC - Eye Exam Eye Exam: Normal appearance Pupil Exam: NORMAL ACCOMODATION - ENT Exam ENT Exam: Mucous Membranes Moist - Respiratory Exam Respiratory Exam: Wheezes - Cardiovascular Exam Cardiovascular Exam: REGULAR RHYTHM, +S1, +S2 - GI/Abdominal Exam GI & Abdominal Exam: Normal Bowel Sounds - Neurological Exam Neurological exam: Alert, Oriented x3 - Psychiatric Exam Psychiatric exam: Normal Affect Discharge Plan - Discharge Medications Prescriptions: Albuterol HFA [Ventolin HFA 90 mcg/actuation (8 g)] 2 puff IH Q6 PRN #1 puff PRN Reason: Wheezing Amoxicillin/Clavulanate [Augmentin 875 MG-125 MG] 1 tab PO Q12H #10 tab Fluconazole [Diflucan] 100 mg PO DAILY #5 tab Methylprednisolone [Medrol Dose Pack (21 tabs)] 4 mg PO DAILY #21 mg Metronidazole [Flagyl] 500 mg PO TID #21 tablet - Follow Up Plan Condition: FAIR Disposition: HOME/ ROUTINE Instructions: Rheumatoid Arthritis, Pneumonia in Adults, Anemia Caused by Low Iron, Adult (DC), Weakness (ED), Weakness (GEN) Additional Instructions: follow up with primary MD and GI doctor 1 week Referrals: Natalio El MD [Medical Doctor] - Kaleb Meier MD [Staff Provider] - Magalie ePrry MD [Staff Provider] - Michael Guillermo MD [Staff Provider] - <Kendra Ravi - Last Filed: 05/23/18 18:04> Provider - Provider Date of Admission: 05/16/18 20:42 Attending physician: Cody Shankar MD Consults: 05/17/18 01:40 Case Management Referral Routine Comment: Physician Instructions: Reason For Exam: needs help @ home with ADL Reason for Referral: Discharge Planning 05/17/18 03:35 Gastroenterology Consult Routine Comment: Consulting Provider: Michael Guillermo Consulting Physician: Micheal Guillermo Reason for Consult: Anemia w/ Hb 9.1, reports black stool x 3 days ago 05/20/18 08:54 Nephrology Consult Routine Comment: Consulting Provider: Magalie Perry Consulting Physician: Magalie Perry Reason for Consult: hyponatremia Hospital Course - Lab Results Lab Results: Micro Results 05/18/18 19:54 Blood-Venous Blood Culture - Preliminary NO GROWTH AFTER 4 DAYS 05/16/18 19:00 Blood-Venous Blood Culture - Final NO GROWTH AFTER 5 DAYS 05/16/18 19:00 Blood-Venous Gram Stain - Final TEST NOT PERFORMED 05/16/18 18:00 Blood-Venous Blood Culture - Final NO GROWTH AFTER 5 DAYS 05/16/18 18:00 Blood-Venous Gram Stain - Final TEST NOT PERFORMED 05/16/18 18:25 Blood-Venous Blood Culture - Final NO GROWTH AFTER 5 DAYS 05/16/18 18:25 Blood-Venous Gram Stain - Final TEST NOT PERFORMED 05/18/18 17:00 Sputum Gram Stain - Final 05/18/18 17:00 Sputum Sputum Culture - Final Staphylococcus Aureus Yeast Species 05/17/18 13:45 Urine,Clean Catch Urine Culture - Final Streptococcus anginosus group Most Recent Lab Values WBC 9.4 K/uL (4.8-10.8) 05/23/18 05:30 RBC 3.29 Mil/uL (3.80-5.20) L 05/23/18 05:30 Hgb 8.7 g/dL (12.0-16.0) L 05/23/18 05:30 Hct 26.4 % (34.0-47.0) L 05/23/18 05:30 MCV 80.2 fl (81.0-99.0) L 05/23/18 05:30 MCH 26.3 pg (27.0-31.0) L 05/23/18 05:30 MCHC 32.8 g/dL (33.0-37.0) L 05/23/18 05:30 RDW 14.2 % (11.5-14.5) 05/23/18 05:30 Plt Count 257 K/uL (130-400) 05/23/18 05:30 MPV 7.2 fl (7.2-11.7) 05/18/18 05:12 Neut % (Auto) 87.4 % (50.0-75.0) H 05/18/18 05:12 Lymph % (Auto) 7.4 % (20.0-40.0) L 05/18/18 05:12 [place] % (Auto) 2.5 % (0.0-10.0) 05/18/18 05:12 Eos % (Auto) 2.3 % (0.0-4.0) 05/18/18 05:12 Baso % (Auto) 0.4 % (0.0-2.0) 05/18/18 05:12 Neut # (Auto) 5.7 K/uL (1.8-7.0) 05/18/18 05:12 Lymph # (Auto) 0.5 K/uL (1.0-4.3) L 05/18/18 05:12 [place] # (Auto) 0.2 K/uL (0.0-0.8) 05/18/18 05:12 Eos # (Auto) 0.1 K/uL (0.0-0.7) 05/18/18 05:12 Baso # (Auto) 0.0 K/uL (0.0-0.2) 05/18/18 05:12 Neutrophils % (Manual) 82 % (42-75) H 05/16/18 18:25 Band Neutrophils % 2 % (0-2) 05/16/18 18:25 Lymphocytes % (Manual) 10 % (20-50) L 05/16/18 18:25 Monocytes % (Manual) 4 % (0-10) 05/16/18 18:25 Eosinophils % (Manual) 2 % (0-7) 05/16/18 18:25 Platelet Estimate Normal (NORMAL) 05/16/18 18:25 Hypochromasia (manual) Slight 05/16/18 18:25 Poikilocytosis (manual Moderate 05/16/18 18:25 Anisocytosis (manual) Moderate 05/16/18 18:25 Microcytosis (manual) Slight 05/16/18 18:25 Ovalocytes Slight 05/16/18 18:25 PT 11.5 Seconds (9.8-13.1) 05/16/18 18:25 INR 1.0 05/16/18 18:25 APTT 24.2 Seconds (25.6-37.1) L 05/16/18 18:25 pO2 17 mm/Hg (30-55) L 05/16/18 18:13 VBG pH 7.39 (7.32-7.43) 05/16/18 18:13 VBG pCO2 46 mmHg (40-60) 05/16/18 18:13 VBG HCO3 24.6 mmol/L 05/16/18 18:13 VBG Total CO2 29.2 mmol/L (22-28) H 05/16/18 18:13 VBG O2 Sat (Calc) 25.3 % (40-65) L 05/16/18 18:13 VBG Base Excess 2.2 mmol/L (0.0-2.0) H 05/16/18 18:13 VBG Potassium 4.9 mmol/L (3.6-5.2) 05/16/18 18:13 Sodium 129.0 mmol/L (132-148) L 05/16/18 18:13 Chloride 99.0 mmol/L (98-107) 05/16/18 18:13 Glucose 81 mg/dL (65-105) 05/16/18 18:13 Lactate 1.9 mmol/L (0.7-2.1) 05/16/18 18:13 FiO2 21.0 % 05/16/18 18:13 Sodium 136 mmol/l (132-148) 05/23/18 05:30 Potassium 3.3 MMOL/L (3.6-5.0) L 05/23/18 05:30 Chloride 108 mmol/L (98-107) H 05/23/18 05:30 Carbon Dioxide 20 mmol/L (22-30) L 05/23/18 05:30 Anion Gap 11 (10-20) 05/23/18 05:30 BUN 8 mg/dl (7-17) 05/23/18 05:30 Creatinine 0.4 mg/dl (0.7-1.2) L 05/23/18 05:30 Est GFR ( Amer) > 60 05/23/18 05:30 Est GFR (Non-Af Amer) > 60 05/23/18 05:30 Random Glucose 165 mg/dL (65-105) H 05/23/18 05:30 Serum Osmolality 269 mosm/kg (272-300) L 05/19/18 19:12 Uric Acid 2.3 mg/Dl (2.2-7.5) 05/20/18 05:55 Calcium 7.9 mg/dL (8.4-10.2) L 05/23/18 05:30 Phosphorus 4.3 mg/dl (2.5-4.5) 05/17/18 04:15 Magnesium 1.8 MG/DL (1.6-2.3) 05/18/18 05:12 Iron 25 ug/dL (37-170) L 05/21/18 06:40 TIBC 152 ug/dL (250-450) L 05/21/18 06:40 % Saturation 17 % (20-55) L 05/21/18 06:40 Ferritin 671.0 ng/Ml (11.1-264.0) H 05/21/18 06:40 Total Bilirubin 0.3 mg/dl (0.2-1.3) 05/23/18 05:30 AST 98 U/L (14-36) H 05/23/18 05:30 ALT 75 U/L (9-52) H D 05/23/18 05:30 Alkaline Phosphatase 66 U/L (38-126) 05/23/18 05:30 Total Creatine Kinase 1051 U/L (30-135) H 05/20/18 13:00 Troponin I < 0.0120 ng/mL (0.00-0.120) 05/16/18 18:25 Total Protein 6.6 G/DL (6.3-8.2) 05/23/18 05:30 Total Protein (PEP) 5.5 g/dL (6.1-8.1) L 05/21/18 06:40 Albumin 2.6 g/dL (3.5-5.0) L 05/23/18 05:30 Albumin (PEP) 1.9 g/dL (3.8-4.8) L 05/21/18 06:40 Globulin 4.0 gm/dL (2.2-3.9) H 05/23/18 05:30 Albumin/Globulin Ratio 0.6 (1.0-2.1) L 05/23/18 05:30 Ttius-1-Fciqaocih 0.4 g/dL (0.2-0.3) H 05/21/18 06:40 Lqawr-1-Fpxkgbfdk 0.8 g/dL (0.5-0.9) 05/21/18 06:40 Apix-3-Zzcsspjb 0.2 g/dL (0.4-0.6) L 05/21/18 06:40 Rvia-0-Xutkbhoa 0.3 g/dL (0.2-0.5) 05/21/18 06:40 Gamma Globulins 1.9 g/dL (0.8-1.7) H 05/21/18 06:40 Abnorm Protein Band 1 TEST NOT PERFORMED 05/21/18 06:40 Abnorm Protein Band 2 TEST NOT PERFORMED 05/21/18 06:40 Abnorm Protein Band 3 TEST NOT PERFORMED 05/21/18 06:40 Vitamin B12 859 pg/mL (239-931) 05/17/18 04:15 Folate 12.7 ng/mL 05/21/18 06:40 TSH 3rd Generation 1.93 mIU/ML (0.46-4.68) 05/20/18 05:55 Venous Blood Potassium 4.9 mmol/L (3.6-5.2) 05/16/18 18:13 Urine Color Yellow (YELLOW) 05/17/18 12:24 Urine Clarity Clear (Clear) 05/17/18 12:24 Urine pH 6.0 (5.0-8.0) 05/17/18 12:24 Ur Specific [place] 1.014 (1.003-1.030) 05/17/18 12:24 Urine Protein Negative mg/dL (NEGATIVE) 05/17/18 12:24 Urine Glucose (UA) Neg mg/dL (NEGATIVE) 05/17/18 12:24 Urine Ketones Trace mg/dL (NEGATIVE) 05/17/18 12:24 Urine Blood Negative (NEGATIVE) 05/17/18 12:24 Urine Nitrate Negative (NEGATIVE) 05/17/18 12:24 Urine Bilirubin Negative (NEGATIVE) 05/17/18 12:24 Urine Urobilinogen 0.2-1.0 mg/dL (0.2-1.0) 05/17/18 12:24 Ur Leukocyte Esterase Neg Alfa/uL (Negative) 05/17/18 12:24 Urine RBC (Auto) 1 /hpf (0-3) 05/17/18 12:24 Urine Microscopic WBC 1 /hpf (0-5) 05/17/18 12:24 Ur Squamous Epith Cells 1 /hpf (0-5) 05/17/18 12:24 Urine Bacteria Rare (<OCC) 05/17/18 12:24 Urine Osmolality 262 mosm/kg (300-1000) L 05/19/18 20:00 Ur Random Creatinine 40.2 mg/dL 05/19/18 20:00 Ur Random Sodium 55 meq/L 05/19/18 20:00 Ur Random Potassium 18.9 mmol/L 05/19/18 20:00 Stool Occult Blood Negative (NEGATIVE) 05/21/18 11:41 SHANIQUE & SPEP Interp See note 05/21/18 06:40 AMANDA Screen Positive (Negative) H 05/21/18 12:38 AMANDA Titer 1:160 Titer (<1:40) H 05/21/18 12:38 AMANDA Pattern Nucleolar H 05/21/18 12:38 Proteinase 3 (PR3) <1.0 AI (<1.0) 05/20/18 13:00 Myeloperoxidase Ab <1.0 AI (<1.0) 05/20/18 13:00 Sm (Lama) Antibody 2.4 AI (<1.0) H 05/21/18 12:38 Anti-Lama Interpret Positive (Negative) H 05/21/18 12:38 [employer] WORKER Antibody >8.0 AI (<1.0) H 05/21/18 12:38 [employer] CAL[employer]ER WORKER Antibody Interp Positive (Negative) H 05/21/18 12:38 SM/[employer] CALENDER WORKER Antibody 3.1 AI (<1.0) H 05/21/18 12:38 Sm/[employer] CAL[employer]ER WORKER Antibody Interp Positive (Negative) H 05/21/18 12:38 Double Strand DNA Ab 25 IU/mL H 05/21/18 12:38 Complement C3 < 40.0 mg/dL (88.0-165.0) L 05/21/18 06:40 Complement C4 12.2 mg/dL (14.0-44.0) L 05/21/18 06:40 Tot Complement (CH50) 32 U/mL (31-60) 05/20/18 13:00 Hepatitis A IgM Ab Negative (NEGATIVE) 05/21/18 07:11 Hep Bs Antigen Negative (NEGATIVE) 05/21/18 07:11 Hep B Core IgM Ab Negative (NEGATIVE) 05/21/18 07:11 Hepatitis C Antibody Negative (NEGATIVE) 05/21/18 07:11 Influenza Typ A,B (EIA) Negative for flu a/b (NEGATIVE) 05/17/18 13:45 Influenza Type A Ab 1:16 titer (<1:8) H 05/17/18 13:25 Influenza Type B Ab <1:8 titer (<1:8) 05/17/18 13:25 Ur L.pneumophila Ag Negative (NEGATIVE) 05/18/18 08:14 Mycoplasma pneumon IgM Negative (NEGATIVE) 05/17/18 17:24 Blood Type B POSITIVE 05/16/18 18:25 Blood Type Confirm B POSITIVE 05/17/18 04:15 Antibody Screen Negative 05/16/18 18:25 Crossmatch See Detail 05/16/18 18:25 BBK History Checked No verified bt 05/16/18 18:25 Attending/Attestation - Attestation I have personally seen and examined this patient.: Yes I have fully participated in the care of the patient.: Yes I have reviewed all pertinent clinical information, including history, physical exam and plan: Yes Notes (Text): Pneumonia prob bacterial - CT of chest : Pulmonary vascular congestion with small bilateral pleural effusions. Left lower lobe patchy airspace opacities, possibly infiltrates versus confluent edema. 6 mm right upper lobe nodule. Twelve month CT follow-up can be obtained to assess for stability. - Mycoplasma and Legionella : neg - fever resolved - Sputum c/s: Staph aureus, yeast - Pt received IV Zosyn and Vanco - added Diflucan due to yeast in Sputum - will d/c home on PO Augmentin , Diflucan, UTI - Urine c/s : Strep - received Zosyn and Vanco Anemia, chronic likely due to chronic dis - Venofer x1 given - GI consulted - plan for Colonoscopy as outpt- with Dr Guillermo - pt instructed to ff up - Stool Guaiac negative x 2 Hyponatremia , resolved IVF hydration Transaminitis, improeved - ? sec to infection vs meds - Hepatitis screen negative Rheumatoid Arthritis, Connective Tissue Dis - cont home med - Double Stranded DNA , [employer] antibody and Anti Lama all positive - pt sees Dr Meier as Rheumatology - advised to ff up on d/c noah - started on IV Solumedrol - d/c on Medrol dose [place] Influenza A - pt completed Tamiflu as outpt
[2018-05-23] MEDS: Azithromycin 500 MG in Sodium Chloride 0.9% 250 ML IVPB SCH (10:51)
[2018-05-23 16:20] VITALS: BP 149/84; PULSE 87; RESP 18; TEMP 97.1
[2018-05-27 02:51] LABS: ANCA SCREEN NEGATIVE (NEGATIVE)
== END 2018-05-23 17:20 | disposition home or self-care (01) | DRG 137 ==
LOC: H.ER 17:20 → H.ERHOLD 20:42 → OBSVTOIN 20:42 → H.TEL 22:39 → H.MEDSURG1 05-19 22:51
PROVIDERS: ADMIT Internal Medicine; ATTEND Internal Medicine
DX: J15.8 Pneumonia due to other specified bacteria (principal); B37.0 Candidal stomatitis; J91.8 Pleural effusion in other conditions classified elsewhere; E22.2 Syndrome of inappropriate secretion of antidiuretic hormone; D50.8 Other iron deficiency anemias; N39.0 Urinary tract infection, site not specified; B95.4 Other streptococcus as the cause of diseases classified elsewhere; D63.8 Anemia in other chronic diseases classified elsewhere; E11.9 Type 2 diabetes mellitus without complications; I10 Essential (primary) hypertension; M79.7 Fibromyalgia; M06.9 Rheumatoid arthritis, unspecified; E78.5 Hyperlipidemia, unspecified; K29.70 Gastritis, unspecified, without bleeding; R74.0 Nonspecific elevation of levels of transaminase and lactic acid dehydrogenase [LDH]; Z79.84 Long term (current) use of oral hypoglycemic drugs